=== PATIENT | male | born 1950 | race Caucasian/White ===

== ENCOUNTER 2016-11-14 18:26 | Inpatient (IN) | payer MEDICARE, MEDICAID ==
[~2016-11-14] VITALS: Ht 180.3 cm; Wt 220.0 kg
[2016-11-14] MEDS ORDERED: ALBUTEROL/IPRATROPIUM 2.5MG/0.5MG, 3 ML NPPB ONE (19:00)
[2016-11-14] MEDS ORDERED: PLEASE ENTER ALLERGIES MC SCH ×2 (19:00)
[2016-11-14] MEDS ORDERED: SODIUM CHLORIDE FLUSH 10ML SYR IVF ONE (19:00)
[2016-11-14] MEDS ORDERED: PLEASE ENTER HEIGHT AND WEIGHT MC SCH (19:00)
[2016-11-14] MEDS ORDERED: ALBUTEROL/IPRATROPIUM 2.5MG/0.5MG, 3 ML ONE (19:02)
[2016-11-14 19:32] VITALS: BP 119/71
[2016-11-14 19:34] LABS: ASPARTATE AMINO TRANSFERASE 41 U/L (15-37); BLOOD UREA NITROGEN 39 mg/dL (7-18)
[2016-11-14 19:39] LABS: IS PT STATUS REG ER OR PRE ER? YES
[2016-11-14] MEDS ORDERED: AMLO10TA2 PO (20:57)
[2016-11-14] MEDS ORDERED: FLUT9.9S INH (20:57)
[2016-11-14] MEDS ORDERED: PRAV40TA2 PO (20:57)
[2016-11-14] MEDS ORDERED: OXYC30TA PO (20:57)
[2016-11-14] MEDS ORDERED: INSU100V13 SQ (20:57)
[2016-11-14] MEDS ORDERED: SODI104S3 NS (20:57)
[2016-11-14] MEDS ORDERED: POLY17PO5 PO (20:57)
[2016-11-14] MEDS ORDERED: PANT40TA5 PO (20:57)
[2016-11-14] MEDS ORDERED: ALBU8.5H3 IH (20:57)
[2016-11-14] MEDS ORDERED: FURO20TA3 PO (20:57)
[2016-11-14] MEDS ORDERED: VALS1TAB30 PO (20:57)
[2016-11-14] MEDS ORDERED: ONDA8TAB9 PO (20:57)
[2016-11-14] MEDS ORDERED: INSU200I SQ (20:57)
[2016-11-14] MEDS ORDERED: GABA600T2 PO (20:57)
[2016-11-14] MEDS ORDERED: SOD28CRE SC (20:57)
[2016-11-14] MEDS ORDERED: SITA100T PO (20:57)
[2016-11-14] MEDS ORDERED: METF10002 PO (21:40)
[2016-11-14] MEDS ORDERED: LEVO50TA5 PO (21:40)
[2016-11-14] MEDS ORDERED: MUPI15CR TP (21:40)
[2016-11-14] MEDS ORDERED: INSU100C SQ-INSULIN (21:40)
[2016-11-14] MEDS: INSULIN ASPART 100 UNITS/ML, PEN SQ-INSULIN SCH (22:00)
[2016-11-14] MEDS ORDERED: INSULIN DETEMIR 100 UNITS/ML, PEN SQ-INSULIN SCH (22:00)
[2016-11-14] MEDS: NICOTINE 14MG/24 HR PATCH.TD24 TD SCH (22:00)
[2016-11-14] MEDS ORDERED: SODIUM CHLORIDE 0.9% 1,000 ML IV SCH (22:30)
[2016-11-14 23:56] LABS: IS PT STATUS REG ER OR PRE ER? NO
[2016-11-15] MEDS: NICOTINE 14MG/24 HR PATCH.TD24 TD SCH (00:38)
[2016-11-15] MEDS: INSULIN ASPART 100 UNITS/ML, PEN SQ-INSULIN SCH (00:40)
[2016-11-15] MEDS ORDERED: LEVOTHYROXINE 50 MCG TABLET PO SCH (06:00)
[2016-11-15] MEDS ORDERED: AMLODIPINE 5 MG TABLET PO SCH (09:00)
[2016-11-15] MEDS ORDERED: PRAVASTATIN 40 MG TABLET PO SCH (21:00)
== END 2016-11-15 01:50 | disposition left against medical advice (07) | DRG 682 ==
LOC: ED 20:30 → EDIP 20:42 → ED 21:00 → 4WST 22:08
PROVIDERS: ADMIT Internal Medicine; ATTEND Internal Medicine
DX: N17.0 Acute kidney failure with tubular necrosis (principal); J96.21 Acute and chronic respiratory failure with hypoxia; J44.1 Chronic obstructive pulmonary disease with (acute) exacerbation; Z68.44 Body mass index [BMI] 60.0-69.9, adult; E03.9 Hypothyroidism, unspecified; E11.42 Type 2 diabetes mellitus with diabetic polyneuropathy; E11.621 Type 2 diabetes mellitus with foot ulcer; E66.01 Morbid (severe) obesity due to excess calories; E86.0 Dehydration; F17.200 Nicotine dependence, unspecified, uncomplicated; F32.9 Major depressive disorder, single episode, unspecified; G47.33 Obstructive sleep apnea (adult) (pediatric); I10 Essential (primary) hypertension; I27.81 Cor pulmonale (chronic); L97.519 Non-pressure chronic ulcer of other part of right foot with unspecified severity; L97.529 Non-pressure chronic ulcer of other part of left foot with unspecified severity; Z91.19 Patient's noncompliance with other medical treatment and regimen; Z99.81 Dependence on supplemental oxygen; S91.302A Unspecified open wound, left foot, initial encounter; Z88.8 Allergy status to other drugs, medicaments and biological substances; Z79.899 Other long term (current) drug therapy; X58.XXXA Exposure to other specified factors, initial encounter; Y93.9 Activity, unspecified; Y92.89 Other specified places as the place of occurrence of the external cause; Y99.8 Other external cause status
CPT/HCPCS: 36415; 71010; 78582; 80053; 82550; 82962; 83880; 84484; 85025; 85379; 85610; 85730; 93005; 93970; 94640; 99285; J1815; J7620; A9540; A9558; C9898; J7030; J7512

== ENCOUNTER 2016-11-27 13:18 | Emergency (ER) | payer MEDICARE, MEDICAID ==
[~2016-11-27] VITALS: Ht 182.9 cm; Wt 162.6 kg
[~2016-11-27 13:18] MED LIST: ALBU8.5H3 IH; AMLO10TA2 PO; FLUT9.9S INH; FURO20TA3 PO; GABA600T2 PO; INSU100C SQ-INSULIN; INSU100V13 SQ; INSU200I SQ; LEVO50TA5 PO; METF10002 PO; MUPI15CR TP; ONDA8TAB9 PO; OXYC30TA PO; PANT40TA5 PO; POLY17PO5 PO; PRAV40TA2 PO; SITA100T PO; SOD28CRE SC; SODI104S3 NS; VALS1TAB30 PO
[2016-11-27 13:21] VITALS: BP 129/75
== END 2016-11-27 14:17 | disposition home or self-care (01) ==
LOC: ED 14:04
DX: Z76.0 Encounter for issue of repeat prescription (principal); J44.9 Chronic obstructive pulmonary disease, unspecified; E11.9 Type 2 diabetes mellitus without complications; I10 Essential (primary) hypertension; F17.210 Nicotine dependence, cigarettes, uncomplicated
CPT/HCPCS: 99283

== ENCOUNTER 2017-03-07 15:46 | Emergency (ER) | payer MEDICARE, MEDICAID ==
[~2017-03-07] VITALS: Ht 182.9 cm; Wt 170.0 kg
[~2017-03-07 15:46] MED LIST changes: -ALBU8.5H3 IH; +ALBU8.5H8 IH
[2017-03-07 15:55] VITALS: BP 162/77
[2017-03-07 16:57] LABS: HEMATOCRIT 42.5 % (39.2-51.8); HEMOGLOBIN 14.1 g/dL (13.7-18.0); WHITE BLOOD COUNT 14.3 x10^3/uL (3.4-10)
== END 2017-03-07 18:04 | disposition home or self-care (01) ==
LOC: ED 17:58
DX: R21 Rash and other nonspecific skin eruption (principal); J44.9 Chronic obstructive pulmonary disease, unspecified; M19.90 Unspecified osteoarthritis, unspecified site; I10 Essential (primary) hypertension; E66.01 Morbid (severe) obesity due to excess calories; E11.40 Type 2 diabetes mellitus with diabetic neuropathy, unspecified
CPT/HCPCS: 36415; 85025; 99283

== ENCOUNTER 2017-05-02 16:16 | Emergency (ER) | payer MEDICARE, MEDICAID ==
[~2017-05-02] VITALS: Ht 182.9 cm; Wt 170.0 kg
[2017-05-02] MEDS ORDERED: predniSONE 50MG TABLET PO STA (17:03)
[2017-05-02 17:16] LABS: BASOPHILS % (AUTO) 0 % (0-1); EOSINOPHILS % (AUTO) 3 % (1-7); LYMPHOCYTES % (AUTO) 16 % (22-44); MD NO; MEAN CORPUSCULAR HEMOGLOBIN 29.6 pg (27.5-34.5); MEAN CORPUSCULAR HGB CONC 32.7 g/dL (33.2-36.2); MEAN CORPUSCULAR VOLUME 90.4 fL (81-97); MEAN PLATELET VOLUME 8.4 fL (7.4-10.4); MONOCYTES # (AUTO) 0.51 x10^3/uL (0.2-0.8); MONOCYTES % (AUTO) 4 % (2-9); NEUTROPHILS # (AUTO) 10.45 x10^3/uL (1.8-6.8); NEUTROPHILS % (AUTO) 77 % (42-75); PLATELET COUNT 272 x10^3/uL (130-400); RED CELL DISTRIBUTION WIDTH 15.3 % (9.4-14.8)
[2017-05-02] MEDS ORDERED: ALBUTEROL/IPRATROPIUM 2.5MG/0.5MG, 3 ML ONE (17:19)
[2017-05-02 17:27] LABS: ALANINE AMINOTRANSFERASE 27 U/L (12-78); ALBUMIN 3.3 g/dL (3.4-5.0); ANION GAP 5 mmol/L (5-15); CALCIUM 9.3 mg/dL (8.5-10.1); CHLORIDE 105 mmol/L (98-107)
[2017-05-02] MEDS ORDERED: ALBUTEROL/IPRATROPIUM 2.5MG/0.5MG, 3 ML NPPB ONE (17:30)
[2017-05-02 17:32] LABS: ALKALINE PHOSPHATASE 57 U/L (45-117); BILIRUBIN,TOTAL 0.3 mg/dL (0.2-1.0); CREATININE 1.26 mg/dL (0.7-1.3); TOTAL PROTEIN 8.3 g/dL (6.4-8.2); TROPONIN I < 0.015 ng/mL (0.000-0.045)
[2017-05-02] MEDS ORDERED: ALBUTEROL SULFATE 2.5 MG/3 ML NPPB ONE (18:00)
[2017-05-02] MEDS ORDERED: ALBUTEROL SULFATE 2.5 MG/3 ML ONE (18:03)
[2017-05-02 19:09] VITALS: BP 155/59
== END 2017-05-02 19:11 | disposition home or self-care (01) ==
LOC: ED 18:24
DX: J44.1 Chronic obstructive pulmonary disease with (acute) exacerbation (principal); E66.01 Morbid (severe) obesity due to excess calories; E11.40 Type 2 diabetes mellitus with diabetic neuropathy, unspecified; I10 Essential (primary) hypertension
CPT/HCPCS: 36415; 71045; 80053; 83880; 84484; 85025; 93005; 94640; 99285; J7512; J7613; J7620

== ENCOUNTER 2017-06-11 17:19 | Inpatient (IN) | payer MEDICARE, MEDICAID ==
[~2017-06-11] VITALS: Ht 182.9 cm; Wt 174.0 kg
[2017-06-11] MEDS ORDERED: ACETAMINOPHEN 325 MG TABLET PO ONE (18:30)
[2017-06-11 18:59] LABS: BASOPHILS % (AUTO) 0 % (0-1); EOSINOPHILS # (AUTO) 0.03 x10^3/uL (0-0.4); EOSINOPHILS % (AUTO) 0 % (1-7); LYMPHOCYTES # (AUTO) 1.29 x10^3/uL (1-3.4); LYMPHOCYTES % (AUTO) 8 % (22-44); MD NO; MEAN CORPUSCULAR HEMOGLOBIN 29.8 pg (27.5-34.5); MEAN CORPUSCULAR HGB CONC 32.7 g/dL (33.2-36.2); MEAN CORPUSCULAR VOLUME 91.3 fL (81-97); MEAN PLATELET VOLUME 8.6 fL (7.4-10.4); MONOCYTES % (AUTO) 4 % (2-9); NEUTROPHILS # (AUTO) 13.49 x10^3/uL (1.8-6.8); NEUTROPHILS % (AUTO) 88 % (42-75); PLATELET COUNT 285 x10^3/uL (130-400); RED BLOOD COUNT 4.76 x10^6/uL (4.38-5.82); RED CELL DISTRIBUTION WIDTH 15.7 % (9.4-14.8)
[2017-06-11] MEDS ORDERED: ACETAMINOPHEN 325 MG TABLET ONE (19:04)
[2017-06-11 19:08] LABS: ALANINE AMINOTRANSFERASE 17 U/L (12-78); ALBUMIN 3.2 g/dL (3.4-5.0); ANION GAP 8 mmol/L (5-15); CALCIUM 8.4 mg/dL (8.5-10.1); CHLORIDE 103 mmol/L (98-107); CREATININE 1.34 mg/dL (0.7-1.3)
[2017-06-11 19:11] LABS: ALKALINE PHOSPHATASE 62 U/L (45-117); BILIRUBIN,TOTAL 0.5 mg/dL (0.2-1.0); TOTAL PROTEIN 8.3 g/dL (6.4-8.2)
[2017-06-11] MEDS ORDERED: ONDA4TAB10 PO (19:38)
[2017-06-11] MEDS ORDERED: METF1000 PO (19:38)
[2017-06-11] MEDS ORDERED: HYDR28.423 TD (19:38)
[2017-06-11] MEDS ORDERED: INSU100V13 SQ (19:38)
[2017-06-11] MEDS ORDERED: FURO20TA3 PO (19:38)
[2017-06-11] MEDS ORDERED: DOCU100C33 PO (19:38)
[2017-06-11] MEDS ORDERED: OXYC30TA74 PO (19:38)
[2017-06-11] MEDS ORDERED: AMLO10TA2 PO (19:38)
[2017-06-11] MEDS ORDERED: LEVO50TA5 PO (19:38)
[2017-06-11] MEDS ORDERED: MUPI15CR TD (19:38)
[2017-06-11] MEDS ORDERED: POLY17PO5 PO (19:38)
[2017-06-11] MEDS ORDERED: IPRA3AMP INH (19:38)
[2017-06-11] MEDS ORDERED: FLUT9.9S NAS (19:38)
[2017-06-11] MEDS ORDERED: VALS1TAB30 PO (19:38)
[2017-06-11] MEDS ORDERED: PRAV40TA2 PO (19:38)
[2017-06-11] MEDS ORDERED: SITA100T PO (19:38)
[2017-06-11] MEDS ORDERED: GABA600T2 PO (19:38)
[2017-06-11] MEDS ORDERED: PANT40TA5 PO (19:38)
[2017-06-11] MEDS ORDERED: AMMO57LO TD (19:38)
[2017-06-11] MEDS: SODIUM CHLORIDE 0.9% 1,000 ML IV SCH (19:51)
[2017-06-11] MEDS ORDERED: ONDANSETRON 2MG/ML, 2ML IVPush PRN (20:00)
[2017-06-11] MEDS ORDERED: ACETAMINOPHEN 325 MG TABLET PO PRN (20:00)
[2017-06-11] MEDS ORDERED: MUPIROCIN CALCIUM TD ONE (20:00)
[2017-06-11] MEDS: ENOXAPARIN 40 MG/0.4 ML SQ SCH (20:00)
[2017-06-11] MEDS ORDERED: ALBUTEROL/IPRATROPIUM 2.5MG/0.5MG, 3 ML HHN PRN (20:00)
[2017-06-11] MEDS ORDERED: hydrALAzine 20 MG/ML, 1ML IVPush PRN (20:00)
[2017-06-11 20:24] LABS: MICROSCOPIC AUTO
[2017-06-11 20:25] LABS: CULTURE INDICATED? NO
[2017-06-11] MEDS ORDERED: ALBUTEROL/IPRATROPIUM 2.5MG/0.5MG, 3 ML NPPB PRN (20:30)
[2017-06-11] MEDS ORDERED: INSULIN DETEMIR 100 UNITS/ML, PEN SQ-INSULIN SCH (21:00)
[2017-06-11] MEDS: DOCUSATE 100 MG CAPSULE PO SCH (21:00)
[2017-06-11] MEDS: PRAVASTATIN 40 MG TABLET PO SCH (21:00)
[2017-06-11] MEDS ORDERED: INSULIN LISPRO 100 UNITS/ML, PEN SQ-INSULIN SCH (21:00)
[2017-06-11] MEDS: metFORMIN 500 MG TABLET PO SCH (21:00)
[2017-06-11] MEDS: ALBUTEROL SULFATE 2.5 MG/3 ML NPPB SCH ×2 (21:30→23:00)
[2017-06-11 21:52] VITALS: BP 132/61
[2017-06-11] MEDS: GABAPENTIN 400 MG CAPSULE PO SCH (23:55)
[2017-06-12 02:38] VITALS: BP 112/66
[2017-06-12] MEDS: ALBUTEROL SULFATE 2.5 MG/3 ML NPPB SCH ×5 (06:00→20:15)
[2017-06-12 06:50] VITALS: BP 138/74
[2017-06-12] MEDS: FLUTICASONE NASAL SPRAY 16GM NAS SCH (09:00)
[2017-06-12] MEDS: FUROSEMIDE 20 MG TABLET PO SCH ×2 (09:00→09:49)
[2017-06-12] MEDS: DOCUSATE 100 MG CAPSULE PO SCH ×2 (09:00→21:00)
[2017-06-12] MEDS: PANTOPROZOLE 40MG TABLET PO SCH ×2 (09:00→09:48)
[2017-06-12] MEDS: POLYETHYLENE GLYCOL 17 GM PACKET PO SCH (09:00)
[2017-06-12] MEDS: LEVOTHYROXINE 50 MCG TABLET PO SCH (09:00)
[2017-06-12] MEDS: INSULIN LISPRO 100 UNITS/ML, PEN SQ-INSULIN SCH ×3 (09:45→22:27)
[2017-06-12] MEDS: INSULIN GLARGINE 100 UNITS/ML, PEN SQ-INSULIN SCH ×2 (09:46→22:28)
[2017-06-12] MEDS: metFORMIN 500 MG TABLET PO SCH ×2 (09:48→23:04)
[2017-06-12] MEDS: SITAGLIPTIN 50MG TABLET PO SCH (09:48)
[2017-06-12] MEDS: GABAPENTIN 400 MG CAPSULE PO SCH ×3 (09:48→23:04)
[2017-06-12] MEDS: SODIUM CHLORIDE 0.9% 1,000 ML IV SCH (10:06)
[2017-06-12] MEDS: AMLODIPINE 5 MG TABLET PO SCH (10:08)
[2017-06-12] MEDS ORDERED: INSULIN LISPRO 100 UNITS/ML, PEN SQ-INSULIN SCH (11:00)
[2017-06-12 13:05] VITALS: BP 153/81
[2017-06-12] MEDS ORDERED: KETOROLAC 30 MG/1 ML IM ONE (17:00)
[2017-06-12] MEDS ORDERED: KETOROLAC 30 MG/1 ML ONE (17:06)
[2017-06-12 19:55] VITALS: BP 159/73
[2017-06-12] MEDS: ENOXAPARIN 40 MG/0.4 ML SQ SCH (23:03)
[2017-06-12] MEDS: PRAVASTATIN 40 MG TABLET PO SCH (23:04)
[2017-06-13 03:32] VITALS: BP 152/79
[2017-06-13] MEDS: INSULIN LISPRO 100 UNITS/ML, PEN SQ-INSULIN SCH ×2 (07:00→11:00)
[2017-06-13 07:01] VITALS: BP 172/80
[2017-06-13] MEDS: ALBUTEROL SULFATE 2.5 MG/3 ML NPPB SCH ×4 (07:07→13:21)
[2017-06-13] MEDS ORDERED: LEVOTHYROXINE 25 MCG TABLET ONE (07:58)
[2017-06-13 08:21] VITALS: BP 159/84
[2017-06-13] MEDS: FLUTICASONE NASAL SPRAY 16GM NAS SCH (09:00)
[2017-06-13] MEDS: POLYETHYLENE GLYCOL 17 GM PACKET PO SCH (09:00)
[2017-06-13] MEDS: DOCUSATE 100 MG CAPSULE PO SCH (09:00)
[2017-06-13] MEDS: GABAPENTIN 400 MG CAPSULE PO SCH (09:00)
[2017-06-13] MEDS: metFORMIN 500 MG TABLET PO SCH ×2 (09:00→12:25)
[2017-06-13] MEDS: PANTOPROZOLE 40MG TABLET PO SCH (09:00)
[2017-06-13] MEDS: SITAGLIPTIN 50MG TABLET PO SCH ×2 (09:00→12:25)
[2017-06-13] MEDS: FUROSEMIDE 20 MG TABLET PO SCH (09:00)
[2017-06-13] MEDS: AMLODIPINE 5 MG TABLET PO SCH (09:09)
[2017-06-13] MEDS: LEVOTHYROXINE 50 MCG TABLET PO SCH (09:10)
[2017-06-13] MEDS: INSULIN GLARGINE 100 UNITS/ML, PEN SQ-INSULIN SCH (09:13)
[2017-06-13 12:22] LABS: HEMOGLOBIN A1C 8.6 % (4.2-6.3)
[2017-06-13 12:30] VITALS: BP 188/90
[2017-06-13] MEDS ORDERED: INSULIN LISPRO 100 UNITS/ML, PEN SQ-INSULIN ONE (12:30)
[2017-06-13 12:49] VITALS: BP 150/55
[2017-06-13 15:00] VITALS: BP 152/57
[2017-06-13] MEDS ORDERED: HYDROcodone/APAP 10/325 MG TABLET PO SCH (15:00)
== END 2017-06-13 15:26 | disposition home or self-care (01) | DRG 864 ==
LOC: ED 19:29 → SUATTDRO 19:38 → EDIP 19:51 → 4NOR 20:42
PROVIDERS: ADMIT Hospitalist; ATTEND Hospitalist
DX: R50.9 Fever, unspecified (principal); E44.0 Moderate protein-calorie malnutrition; J96.10 Chronic respiratory failure, unspecified whether with hypoxia or hypercapnia; I27.81 Cor pulmonale (chronic); E11.42 Type 2 diabetes mellitus with diabetic polyneuropathy; E11.65 Type 2 diabetes mellitus with hyperglycemia; Z68.43 Body mass index [BMI] 50.0-59.9, adult; E66.2 Morbid (severe) obesity with alveolar hypoventilation; L03.90 Cellulitis, unspecified; E03.9 Hypothyroidism, unspecified; F17.200 Nicotine dependence, unspecified, uncomplicated; F32.9 Major depressive disorder, single episode, unspecified; G89.29 Other chronic pain; M54.9 Dorsalgia, unspecified; I11.9 Hypertensive heart disease without heart failure; J44.9 Chronic obstructive pulmonary disease, unspecified; L89.91 Pressure ulcer of unspecified site, stage 1; Z79.4 Long term (current) use of insulin; Z86.73 Personal history of transient ischemic attack (TIA), and cerebral infarction without residual deficits; Z91.14 Patient's other noncompliance with medication regimen; Z93.3 Colostomy status; Z99.81 Dependence on supplemental oxygen; Z88.8 Allergy status to other drugs, medicaments and biological substances
CPT/HCPCS: 36415; 71045; 80053; 81001; 82962; 83036; 83605; 85025; 87040; 93005; 94640; 94660; 99285; J1650; J7613; J7620; J1815

== ENCOUNTER 2017-09-28 03:59 | Inpatient (IN) | payer MEDICARE, MEDICAID ==
[~2017-09-28] VITALS: Ht 180.3 cm; Wt 156.4 kg
[~2017-09-28 03:59] MED LIST changes: +AMMO57LO TD; +DOCU100C33 PO; +FLUT9.9S NAS; +HYDR28.423 TD; +IPRA3AMP INH; +METF1000 PO; +MUPI15CR TD; +ONDA4TAB10 PO; +OXYC30TA74 PO
[2017-09-28] MEDS ORDERED: FLUT1BLS INH (04:23)
[2017-09-28] MEDS ORDERED: ALBUTEROL/IPRATROPIUM 2.5MG/0.5MG, 3 ML NPPB ONE ×2 (04:30→12:00)
[2017-09-28] MEDS ORDERED: ALBUTEROL/IPRATROPIUM 2.5MG/0.5MG, 3 ML ONE ×2 (04:31→11:54)
[2017-09-28 04:40] LABS: MEAN CORPUSCULAR HEMOGLOBIN 29.7 pg (27.5-34.5); MEAN CORPUSCULAR HGB CONC 32.8 g/dL (33.2-36.2); MEAN CORPUSCULAR VOLUME 90.5 fL (81-97); MEAN PLATELET VOLUME 8.2 fL (7.4-10.4); PLATELET COUNT 266 x10^3/uL (130-400); RED CELL DISTRIBUTION WIDTH 13.9 % (9.4-14.8)
[2017-09-28 04:43] LABS: INTERNATIONAL NORMALIZED RATIO 0.98 (0.93-1.1); PROTHROMBIN TIME 10.1 Seconds (9.6-11.5)
[2017-09-28 04:46] LABS: ALANINE AMINOTRANSFERASE 28 U/L (12-78); ANION GAP 9 mmol/L (5-15); CALCIUM 9.4 mg/dL (8.5-10.1); CHLORIDE 101 mmol/L (98-107); CREATININE 1.64 mg/dL (0.7-1.3)
[2017-09-28 04:51] LABS: ALKALINE PHOSPHATASE 64 U/L (45-117); BILIRUBIN,TOTAL 0.4 mg/dL (0.2-1.0); TOTAL PROTEIN 8.2 g/dL (6.4-8.2); TROPONIN I < 0.015 ng/mL (0.000-0.045)
[2017-09-28] MEDS ORDERED: LORazepam 2 MG/ML, 1ML ONE (04:57)
[2017-09-28] MEDS ORDERED: SODIUM CHLORIDE FLUSH 10ML SYR IVF ONE (05:00)
[2017-09-28] MEDS ORDERED: LORazepam 2 MG/ML, 1ML IVP ONE (05:00)
[2017-09-28] MEDS ORDERED: SODIUM CHLORIDE 0.9% 1,000ML IVBOLUS ONE (05:00)
[2017-09-28 05:14] LABS: BASOPHILS % (AUTO) 0 % (0-1); EOSINOPHILS # (AUTO) 0.05 x10^3/uL (0-0.4); EOSINOPHILS % (AUTO) 0 % (1-7); LYMPHOCYTES % (AUTO) 2 % (22-44); MD SCAN; MONOCYTES # (AUTO) 0.53 x10^3/uL (0.2-0.8); MONOCYTES % (AUTO) 2 % (2-9); NEUTROPHILS # (AUTO) 32.11 x10^3/uL (1.8-6.8); NEUTROPHILS % (AUTO) 96 % (42-75)
[2017-09-28 06:23] LABS: ACETONE, SERUM Negative (Negative)
[2017-09-28] MEDS ORDERED: ACETAMINOPHEN 500 MG TABLET ONE (06:48)
[2017-09-28] MEDS ORDERED: ACETAMINOPHEN 500 MG TABLET PO ONE (07:00)
[2017-09-28] MEDS ORDERED: CEFTRIAXONE PMX 1GM/50ML 50 ML IVPB ONE (08:00)
[2017-09-28] MEDS ORDERED: DIPHENHYDRAMINE 50 MG/ML, 1ML IVPush ONE (08:00)
[2017-09-28] MEDS ORDERED: CEFTRIAXONE PMX 1GM/50ML 50 ML ONE (08:15)
[2017-09-28] MEDS ORDERED: DEXTROSE 50%, 50ML SYRINGE IVPush PRN (12:30)
[2017-09-28] MEDS ORDERED: ACETAMINOPHEN 325 MG TABLET PO PRN (12:30)
[2017-09-28] MEDS ORDERED: LABETALOL 5MG/ML, 20ML IVPush PRN (12:30)
[2017-09-28] MEDS ORDERED: PHARMACY MAY ADJ FOR RENAL FX MC PRN (12:30)
[2017-09-28] MEDS ORDERED: ONDANSETRON 2MG/ML, 2ML IVPush PRN (12:30)
[2017-09-28] MEDS ORDERED: GLUCAGON 1 MG IM PRN (12:30)
[2017-09-28] MEDS: LEVOTHYROXINE 50 MCG TABLET PO SCH (12:30)
[2017-09-28] MEDS ORDERED: DEXTROSE 4 GM TAB.CHEW PO PRN (12:30)
[2017-09-28] MEDS: PANTOPROZOLE 40MG TABLET PO SCH (12:30)
[2017-09-28 12:42] LABS: MICROSCOPIC INDICATED
[2017-09-28 12:56] LABS: CULTURE INDICATED? YES
[2017-09-28] MEDS ORDERED: MAGNESIUM SULFATE 1 GM in SODIUM CHLORIDE 0.9% 50 ML IV ONE (13:00)
[2017-09-28] MEDS ORDERED: MAGNESIUM SULFATE 1 GM in SODIUM CHLORIDE 0.9% 25 ML IV ONE (13:00)
[2017-09-28] MEDS: ALBUTEROL/IPRATROPIUM 2.5MG/0.5MG, 3 ML NPPB SCH ×2 (13:00→21:00)
[2017-09-28] MEDS ORDERED: ALBUTEROL SULFATE 2.5 MG/3 ML NPPB PRN (13:00)
[2017-09-28 13:29] LABS: HEMOGLOBIN A1C 9.3 % (4.2-6.3)
[2017-09-28 13:41] LABS: THYROID STIMULATING HORMONE 1.56 mIU/L (0.358-3.740)
[2017-09-28] MEDS ORDERED: CEFTRIAXONE PMX 1GM/50ML 50 ML IV SCH (14:00)
[2017-09-28 14:02] VITALS: BP 174/68
[2017-09-28] MEDS: NICOTINE 14MG/24 HR PATCH.TD24 TD SCH (15:27)
[2017-09-28] MEDS: HEPARIN 5,000 UNITS/ML, 1ML SQ SCH (15:28)
[2017-09-28] MEDS: DOXYCYCLINE 100 MG in DEXTROSE 5% 250 ML IV SCH ×2 (15:29→17:47)
[2017-09-28] MEDS: SODIUM CHLORIDE 0.9% 1,000 ML IV SCH (15:29)
[2017-09-28] MEDS: INSULIN LISPRO 100 UNITS/ML, PEN SQ-INSULIN SCH ×2 (16:00→21:58)
[2017-09-28] MEDS ORDERED: PHARMACOKINETIC CONSULTATION MC ONE (18:00)
[2017-09-28] MEDS ORDERED: PHARMACOKINETIC MONITORING MC PRN (18:00)
[2017-09-28] MEDS ORDERED: VANCOMYCIN PER PHARMACY MC PRN (18:00)
[2017-09-28] MEDS: PIPERACILLIN/TAZO/PMX 4.5GM 100 ML IV SCH (18:57)
[2017-09-28] MEDS ORDERED: VANCOMYCIN 3,000 MG in SODIUM CHLORIDE 0.9% 500 ML IV ONE (19:00)
[2017-09-28] MEDS: DOCUSATE 100 MG CAPSULE PO SCH (21:00)
[2017-09-28] MEDS: INSULIN GLARGINE 100 UNITS/ML, PEN SQ-INSULIN SCH (21:00)
[2017-09-28] MEDS: SODIUM CHLORIDE FLUSH 10ML SYR IVF SCH (21:57)
[2017-09-29] MEDS: PIPERACILLIN/TAZO/PMX 4.5GM 100 ML IV SCH ×3 (00:42→12:38)
[2017-09-29] MEDS: HEPARIN 5,000 UNITS/ML, 1ML SQ SCH ×3 (00:43→16:26)
[2017-09-29 04:00] VITALS: BP 128/57
[2017-09-29] MEDS: ALBUTEROL/IPRATROPIUM 2.5MG/0.5MG, 3 ML NPPB SCH ×5 (04:41→22:30)
[2017-09-29 04:44] LABS: ANION GAP 7 mmol/L (5-15); CALCIUM 8.6 mg/dL (8.5-10.1); CHLORIDE 102 mmol/L (98-107)
[2017-09-29 04:48] LABS: MEAN CORPUSCULAR HEMOGLOBIN 29.8 pg (27.5-34.5); MEAN CORPUSCULAR HGB CONC 32.8 g/dL (33.2-36.2); MEAN CORPUSCULAR VOLUME 90.9 fL (81-97); MEAN PLATELET VOLUME 8.5 fL (7.4-10.4); PLATELET COUNT 201 x10^3/uL (130-400); RED BLOOD COUNT 4.66 x10^6/uL (4.38-5.82); RED CELL DISTRIBUTION WIDTH 14.3 % (9.4-14.8)
[2017-09-29 05:57] LABS: BASOPHILS % (AUTO) 0 % (0-1); EOSINOPHILS % (AUTO) 0 % (1-7); LYMPHOCYTES # (AUTO) 0.81 x10^3/uL (1-3.4); LYMPHOCYTES % (AUTO) 4 % (22-44); MD SCAN; MONOCYTES # (AUTO) 0.35 x10^3/uL (0.2-0.8); MONOCYTES % (AUTO) 2 % (2-9); NEUTROPHILS # (AUTO) 21.84 x10^3/uL (1.8-6.8); NEUTROPHILS % (AUTO) 95 % (42-75)
[2017-09-29] MEDS: INSULIN LISPRO 100 UNITS/ML, PEN SQ-INSULIN SCH ×4 (06:45→21:38)
[2017-09-29] MEDS: PANTOPROZOLE 40MG TABLET PO SCH (08:21)
[2017-09-29] MEDS: DOCUSATE 100 MG CAPSULE PO SCH ×2 (08:21→20:39)
[2017-09-29] MEDS: AMLODIPINE 5 MG TABLET PO SCH (08:22)
[2017-09-29] MEDS: LEVOTHYROXINE 50 MCG TABLET PO SCH (08:22)
[2017-09-29] MEDS: SODIUM CHLORIDE 0.9% 1,000 ML IV SCH (08:29)
[2017-09-29] MEDS: SODIUM CHLORIDE FLUSH 10ML SYR IVF SCH ×2 (08:29→21:00)
[2017-09-29] MEDS: INSULIN GLARGINE 100 UNITS/ML, PEN SQ-INSULIN SCH ×2 (08:30→21:37)
[2017-09-29] MEDS: FLUTICASONE NASAL SPRAY 16GM NAS SCH (10:02)
[2017-09-29] MEDS: NICOTINE 14MG/24 HR PATCH.TD24 TD SCH (12:38)
[2017-09-29] MEDS ORDERED: VANCOMYCIN 2,500 MG in SODIUM CHLORIDE 0.9% 500 ML IV SCH (13:00)
[2017-09-29 14:35] LABS: CREATININE,URINE RANDOM 89.8 mg/dL
[2017-09-29] MEDS: PIPERACILLIN/TAZO/PMX 3.375GM 50 ML IV SCH (20:12)
[2017-09-30] MEDS: HEPARIN 5,000 UNITS/ML, 1ML SQ SCH ×4 (00:52→23:45)
[2017-09-30] MEDS: ALBUTEROL/IPRATROPIUM 2.5MG/0.5MG, 3 ML NPPB SCH ×5 (02:37→19:00)
[2017-09-30] MEDS: PIPERACILLIN/TAZO/PMX 3.375GM 50 ML IV SCH ×4 (03:21→20:21)
[2017-09-30 04:00] VITALS: BP 120/48
[2017-09-30 04:58] LABS: BASOPHILS % (AUTO) 0 % (0-1); EOSINOPHILS # (AUTO) 0.02 x10^3/uL (0-0.4); EOSINOPHILS % (AUTO) 0 % (1-7); LYMPHOCYTES % (AUTO) 8 % (22-44); MD NO; MEAN CORPUSCULAR HEMOGLOBIN 29.9 pg (27.5-34.5); MEAN CORPUSCULAR HGB CONC 33.2 g/dL (33.2-36.2); MEAN CORPUSCULAR VOLUME 90.1 fL (81-97); MEAN PLATELET VOLUME 8.7 fL (7.4-10.4); MONOCYTES # (AUTO) 0.52 x10^3/uL (0.2-0.8); MONOCYTES % (AUTO) 3 % (2-9); NEUTROPHILS # (AUTO) 14.06 x10^3/uL (1.8-6.8); NEUTROPHILS % (AUTO) 88 % (42-75); PLATELET COUNT 185 x10^3/uL (130-400); RED BLOOD COUNT 3.97 x10^6/uL (4.38-5.82); RED CELL DISTRIBUTION WIDTH 14.6 % (9.4-14.8)
[2017-09-30 05:05] LABS: ALANINE AMINOTRANSFERASE 32 U/L (12-78); ALBUMIN 1.9 g/dL (3.4-5.0); ANION GAP 8 mmol/L (5-15); CALCIUM 7.9 mg/dL (8.5-10.1); CHLORIDE 105 mmol/L (98-107); CREATININE 2.92 mg/dL (0.7-1.3)
[2017-09-30 05:08] LABS: ALKALINE PHOSPHATASE 52 U/L (45-117); BILIRUBIN,TOTAL 0.4 mg/dL (0.2-1.0); TOTAL PROTEIN 6.7 g/dL (6.4-8.2)
[2017-09-30] MEDS ORDERED: VANCOMYCIN 2,000 MG in SODIUM CHLORIDE 0.9% 500 ML IV ONE (08:30)
[2017-09-30] MEDS: AMLODIPINE 5 MG TABLET PO SCH (08:41)
[2017-09-30] MEDS: LEVOTHYROXINE 50 MCG TABLET PO SCH (08:41)
[2017-09-30] MEDS: DOCUSATE 100 MG CAPSULE PO SCH ×2 (08:42→20:21)
[2017-09-30] MEDS: FLUTICASONE NASAL SPRAY 16GM NAS SCH (08:43)
[2017-09-30] MEDS: INSULIN GLARGINE 100 UNITS/ML, PEN SQ-INSULIN SCH ×2 (08:44→20:48)
[2017-09-30] MEDS: SODIUM CHLORIDE FLUSH 10ML SYR IVF SCH ×2 (08:52→20:21)
[2017-09-30] MEDS: PANTOPROZOLE 40MG TABLET PO SCH (08:52)
[2017-09-30] MEDS: INSULIN LISPRO 100 UNITS/ML, PEN SQ-INSULIN SCH ×5 (08:53→20:47)
[2017-09-30] MEDS: HYDROcodone/APAP 5/325 TABLET PO PRN (10:48)
[2017-09-30] MEDS: NICOTINE 14MG/24 HR PATCH.TD24 TD SCH (11:27)
[2017-09-30 12:51] VITALS: BP 118/68
[2017-09-30] MEDS ORDERED: OXYcodone IR 5MG TABLET ONE (16:13)
[2017-09-30] MEDS: OXYcodone IR 30 MG TABLET PO PRN ×2 (16:23→23:45)
[2017-09-30 20:04] VITALS: BP 118/68
[2017-10-01 02:17] VITALS: BP 119/68
[2017-10-01] MEDS: PIPERACILLIN/TAZO/PMX 3.375GM 50 ML IV SCH ×4 (02:17→22:31)
[2017-10-01 05:27] LABS: ALBUMIN 2.2 g/dL (3.4-5.0); ANION GAP 9 mmol/L (5-15); CALCIUM 7.8 mg/dL (8.5-10.1); CHLORIDE 103 mmol/L (98-107)
[2017-10-01 05:30] LABS: BASOPHILS # (AUTO) 0.04 x10^3/uL (0-0.1); BASOPHILS % (AUTO) 0 % (0-1); EOSINOPHILS # (AUTO) 0.26 x10^3/uL (0-0.4); EOSINOPHILS % (AUTO) 2 % (1-7); LYMPHOCYTES # (AUTO) 1.88 x10^3/uL (1-3.4); LYMPHOCYTES % (AUTO) 16 % (22-44); MD NO; MEAN CORPUSCULAR HEMOGLOBIN 30.1 pg (27.5-34.5); MEAN CORPUSCULAR HGB CONC 33.5 g/dL (33.2-36.2); MEAN CORPUSCULAR VOLUME 89.8 fL (81-97); MEAN PLATELET VOLUME 9.2 fL (7.4-10.4); MONOCYTES # (AUTO) 0.63 x10^3/uL (0.2-0.8); MONOCYTES % (AUTO) 6 % (2-9); NEUTROPHILS # (AUTO) 8.61 x10^3/uL (1.8-6.8); NEUTROPHILS % (AUTO) 75 % (42-75); PLATELET COUNT 208 x10^3/uL (130-400); RED BLOOD COUNT 4.08 x10^6/uL (4.38-5.82); RED CELL DISTRIBUTION WIDTH 14.3 % (9.4-14.8)
[2017-10-01 05:31] LABS: ALANINE AMINOTRANSFERASE 34 U/L (12-78); ALKALINE PHOSPHATASE 57 U/L (45-117); BILIRUBIN,TOTAL 0.5 mg/dL (0.2-1.0); CREATININE 3.08 mg/dL (0.7-1.3); TOTAL PROTEIN 7.3 g/dL (6.4-8.2)
[2017-10-01] MEDS: OXYcodone IR 30 MG TABLET PO PRN ×3 (06:55→22:39)
[2017-10-01] MEDS: INSULIN LISPRO 100 UNITS/ML, PEN SQ-INSULIN SCH ×4 (07:14→20:57)
[2017-10-01 07:24] VITALS: BP 118/66
[2017-10-01] MEDS: ALBUTEROL/IPRATROPIUM 2.5MG/0.5MG, 3 ML NPPB SCH ×4 (08:17→20:10)
[2017-10-01] MEDS: HEPARIN 5,000 UNITS/ML, 1ML SQ SCH ×2 (09:52→16:04)
[2017-10-01] MEDS: SODIUM CHLORIDE FLUSH 10ML SYR IVF SCH ×2 (09:52→20:39)
[2017-10-01] MEDS: LEVOTHYROXINE 50 MCG TABLET PO SCH (09:52)
[2017-10-01] MEDS: FLUTICASONE NASAL SPRAY 16GM NAS SCH (09:52)
[2017-10-01] MEDS: PANTOPROZOLE 40MG TABLET PO SCH (09:52)
[2017-10-01] MEDS: AMLODIPINE 5 MG TABLET PO SCH (09:53)
[2017-10-01] MEDS: INSULIN GLARGINE 100 UNITS/ML, PEN SQ-INSULIN SCH ×2 (09:54→20:57)
[2017-10-01] MEDS: DOCUSATE 100 MG CAPSULE PO SCH ×2 (09:55→20:39)
[2017-10-01] MEDS: NICOTINE 14MG/24 HR PATCH.TD24 TD SCH (12:24)
[2017-10-01 15:00] VITALS: BP 113/67
[2017-10-01 19:29] VITALS: BP 125/72
[2017-10-02] MEDS: HEPARIN 5,000 UNITS/ML, 1ML SQ SCH ×3 (00:13→17:19)
[2017-10-02 00:48] VITALS: BP 116/70
[2017-10-02] MEDS: PIPERACILLIN/TAZO/PMX 3.375GM 50 ML IV SCH ×4 (04:22→23:14)
[2017-10-02 05:33] LABS: BASOPHILS # (AUTO) 0.03 x10^3/uL (0-0.1); BASOPHILS % (AUTO) 0 % (0-1); EOSINOPHILS % (AUTO) 3 % (1-7); LYMPHOCYTES # (AUTO) 1.73 x10^3/uL (1-3.4); LYMPHOCYTES % (AUTO) 19 % (22-44); MD NO; MEAN CORPUSCULAR HEMOGLOBIN 29.8 pg (27.5-34.5); MEAN CORPUSCULAR HGB CONC 33.5 g/dL (33.2-36.2); MEAN PLATELET VOLUME 8.5 fL (7.4-10.4); MONOCYTES # (AUTO) 0.72 x10^3/uL (0.2-0.8); MONOCYTES % (AUTO) 8 % (2-9); NEUTROPHILS # (AUTO) 6.37 x10^3/uL (1.8-6.8); NEUTROPHILS % (AUTO) 70 % (42-75); PLATELET COUNT 250 x10^3/uL (130-400); RED BLOOD COUNT 4.19 x10^6/uL (4.38-5.82); RED CELL DISTRIBUTION WIDTH 14.5 % (9.4-14.8)
[2017-10-02 05:51] LABS: CHLORIDE 100 mmol/L (98-107)
[2017-10-02 06:03] LABS: ALANINE AMINOTRANSFERASE 33 U/L (12-78); ALBUMIN 2.4 g/dL (3.4-5.0); ALKALINE PHOSPHATASE 63 U/L (45-117); ANION GAP 9 mmol/L (5-15); BILIRUBIN,TOTAL 0.5 mg/dL (0.2-1.0); CALCIUM 8.1 mg/dL (8.5-10.1); CREATININE 3.52 mg/dL (0.7-1.3)
[2017-10-02] MEDS: OXYcodone IR 30 MG TABLET PO PRN ×3 (06:34→20:25)
[2017-10-02] MEDS: INSULIN LISPRO 100 UNITS/ML, PEN SQ-INSULIN SCH ×4 (07:00→20:02)
[2017-10-02] MEDS: ALBUTEROL/IPRATROPIUM 2.5MG/0.5MG, 3 ML NPPB SCH ×4 (07:00→18:45)
[2017-10-02] MEDS: FLUTICASONE NASAL SPRAY 16GM NAS SCH (09:00)
[2017-10-02 10:50] VITALS: BP 129/72
[2017-10-02] MEDS: SODIUM CHLORIDE FLUSH 10ML SYR IVF SCH ×2 (11:04→20:26)
[2017-10-02] MEDS: AMLODIPINE 5 MG TABLET PO SCH (11:05)
[2017-10-02] MEDS: PANTOPROZOLE 40MG TABLET PO SCH (11:05)
[2017-10-02] MEDS: LEVOTHYROXINE 50 MCG TABLET PO SCH (11:05)
[2017-10-02] MEDS: DOCUSATE 100 MG CAPSULE PO SCH ×2 (11:06→20:25)
[2017-10-02] MEDS: INSULIN GLARGINE 100 UNITS/ML, PEN SQ-INSULIN SCH ×2 (11:08→20:26)
[2017-10-02] MEDS: NICOTINE 14MG/24 HR PATCH.TD24 TD SCH (12:30)
[2017-10-02 14:47] VITALS: BP 114/68
[2017-10-02 20:00] VITALS: BP 116/67
[2017-10-03 02:20] VITALS: BP 120/63
[2017-10-03] MEDS: OXYcodone IR 30 MG TABLET PO PRN ×2 (04:56→16:54)
[2017-10-03] MEDS: PIPERACILLIN/TAZO/PMX 3.375GM 50 ML IV SCH ×4 (04:56→23:21)
[2017-10-03 06:38] LABS: BASOPHILS # (AUTO) 0.05 x10^3/uL (0-0.1); BASOPHILS % (AUTO) 0 % (0-1); EOSINOPHILS # (AUTO) 0.22 x10^3/uL (0-0.4); EOSINOPHILS % (AUTO) 2 % (1-7); HCT (SEDRATE) 36.4 % (39.2-51.8); LYMPHOCYTES # (AUTO) 1.45 x10^3/uL (1-3.4); LYMPHOCYTES % (AUTO) 13 % (22-44); MD NO; MEAN CORPUSCULAR HEMOGLOBIN 29.9 pg (27.5-34.5); MEAN CORPUSCULAR HGB CONC 33.1 g/dL (33.2-36.2); MEAN CORPUSCULAR VOLUME 90.2 fL (81-97); MEAN PLATELET VOLUME 8.1 fL (7.4-10.4); MONOCYTES # (AUTO) 0.66 x10^3/uL (0.2-0.8); MONOCYTES % (AUTO) 6 % (2-9); NEUTROPHILS # (AUTO) 8.49 x10^3/uL (1.8-6.8); NEUTROPHILS % (AUTO) 78 % (42-75); PLATELET COUNT 289 x10^3/uL (130-400); RED BLOOD COUNT 4.04 x10^6/uL (4.38-5.82); RED CELL DISTRIBUTION WIDTH 14.9 % (9.4-14.8)
[2017-10-03 06:50] LABS: ANION GAP 10 mmol/L (5-15); CALCIUM 8.2 mg/dL (8.5-10.1); CHLORIDE 103 mmol/L (98-107); CREATININE 3.65 mg/dL (0.7-1.3)
[2017-10-03] MEDS: INSULIN LISPRO 100 UNITS/ML, PEN SQ-INSULIN SCH ×4 (07:00→20:27)
[2017-10-03] MEDS: ALBUTEROL/IPRATROPIUM 2.5MG/0.5MG, 3 ML NPPB SCH ×4 (07:10→20:00)
[2017-10-03 07:12] LABS: SEDIMENTATION RATE 104 mm/hr (0-10)
[2017-10-03] MEDS ORDERED: LEVOTHYROXINE 25 MCG TABLET ONE (08:24)
[2017-10-03] MEDS: LEVOTHYROXINE 50 MCG TABLET PO SCH (08:37)
[2017-10-03] MEDS: AMLODIPINE 5 MG TABLET PO SCH (08:37)
[2017-10-03] MEDS: DOCUSATE 100 MG CAPSULE PO SCH ×2 (08:37→20:37)
[2017-10-03 08:38] VITALS: BP 122/66
[2017-10-03] MEDS: HEPARIN 5,000 UNITS/ML, 1ML SQ SCH ×4 (08:38→23:26)
[2017-10-03] MEDS: FLUTICASONE NASAL SPRAY 16GM NAS SCH (08:44)
[2017-10-03] MEDS: SODIUM CHLORIDE FLUSH 10ML SYR IVF SCH ×2 (08:45→23:26)
[2017-10-03] MEDS: INSULIN GLARGINE 100 UNITS/ML, PEN SQ-INSULIN SCH ×2 (09:00→20:38)
[2017-10-03] MEDS: PANTOPROZOLE 40MG TABLET PO SCH (09:00)
[2017-10-03] MEDS ORDERED: FUROSEMIDE 40 MG/4 ML IV ONE (10:30)
[2017-10-03 12:00] LABS: ANA SCREEN NEGATIVE (Negative)
[2017-10-03] MEDS: NICOTINE 14MG/24 HR PATCH.TD24 TD SCH (12:30)
[2017-10-03 12:45] VITALS: BP 112/61
[2017-10-03] MEDS ORDERED: LIDOCAINE-MPF 1%, 2ML ONE (12:53)
[2017-10-03 15:12] VITALS: BP 144/71
[2017-10-03 17:43] VITALS: BP 110/63
[2017-10-03 19:18] VITALS: BP 113/63
[2017-10-04 02:03] VITALS: BP 125/68
[2017-10-04] MEDS: PIPERACILLIN/TAZO/PMX 3.375GM 50 ML IV SCH ×3 (05:05→18:05)
[2017-10-04] MEDS: INSULIN LISPRO 100 UNITS/ML, PEN SQ-INSULIN SCH ×4 (07:00→21:03)
[2017-10-04] MEDS: ALBUTEROL/IPRATROPIUM 2.5MG/0.5MG, 3 ML NPPB SCH ×4 (07:00→19:51)
[2017-10-04 07:07] LABS: ANION GAP 7 mmol/L (5-15); CALCIUM 8.3 mg/dL (8.5-10.1); CHLORIDE 103 mmol/L (98-107); CREATININE 3.76 mg/dL (0.7-1.3)
[2017-10-04 07:12] VITALS: BP 127/74
[2017-10-04] MEDS: HEPARIN 5,000 UNITS/ML, 1ML SQ SCH ×2 (08:00→16:20)
[2017-10-04] MEDS: DOCUSATE 100 MG CAPSULE PO SCH ×2 (09:00→22:33)
[2017-10-04] MEDS: FLUTICASONE NASAL SPRAY 16GM NAS SCH (09:00)
[2017-10-04] MEDS: INSULIN GLARGINE 100 UNITS/ML, PEN SQ-INSULIN SCH ×3 (09:00→21:02)
[2017-10-04] MEDS: LEVOTHYROXINE 50 MCG TABLET PO SCH (09:31)
[2017-10-04] MEDS: SODIUM CHLORIDE FLUSH 10ML SYR IVF SCH ×2 (09:32→22:43)
[2017-10-04] MEDS: AMLODIPINE 5 MG TABLET PO SCH (09:32)
[2017-10-04] MEDS: PANTOPROZOLE 40MG TABLET PO SCH (09:32)
[2017-10-04] MEDS: NICOTINE 14MG/24 HR PATCH.TD24 TD SCH (12:03)
[2017-10-04 13:35] VITALS: BP 131/61
[2017-10-04] MEDS ORDERED: FUROSEMIDE 100 MG/10 ML IV ONE (15:30)
[2017-10-04] MEDS: CEFTAROLINE 300 MG in SODIUM CHLORIDE 0.9% 100 ML IV SCH (16:20)
[2017-10-04] MEDS ORDERED: OXYcodone IR 5MG TABLET ONE (16:24)
[2017-10-04 19:08] VITALS: BP 114/60
[2017-10-04] MEDS: HYDROcodone/APAP 5/325 TABLET PO PRN (21:16)
[2017-10-04] MEDS: OXYcodone IR 30 MG TABLET PO PRN (22:31)
[2017-10-05 01:40] VITALS: BP 100/58
[2017-10-05] MEDS: HYDROcodone/APAP 5/325 TABLET PO PRN ×2 (02:45→21:23)
[2017-10-05] MEDS: OXYcodone IR 30 MG TABLET PO PRN (04:25)
[2017-10-05] MEDS: CEFTAROLINE 300 MG in SODIUM CHLORIDE 0.9% 100 ML IV SCH ×2 (04:25→20:54)
[2017-10-05 05:34] LABS: CHLORIDE 104 mmol/L (98-107)
[2017-10-05 05:40] LABS: BASOPHILS # (AUTO) 0.04 x10^3/uL (0-0.1); BASOPHILS % (AUTO) 0 % (0-1); EOSINOPHILS # (AUTO) 0.31 x10^3/uL (0-0.4); EOSINOPHILS % (AUTO) 3 % (1-7); LYMPHOCYTES # (AUTO) 2.18 x10^3/uL (1-3.4); LYMPHOCYTES % (AUTO) 21 % (22-44); MD NO; MEAN CORPUSCULAR HGB CONC 33.2 g/dL (33.2-36.2); MEAN CORPUSCULAR VOLUME 90.4 fL (81-97); MEAN PLATELET VOLUME 7.8 fL (7.4-10.4); MONOCYTES # (AUTO) 0.85 x10^3/uL (0.2-0.8); MONOCYTES % (AUTO) 8 % (2-9); NEUTROPHILS # (AUTO) 7.01 x10^3/uL (1.8-6.8); NEUTROPHILS % (AUTO) 68 % (42-75); PLATELET COUNT 449 x10^3/uL (130-400); RED BLOOD COUNT 3.89 x10^6/uL (4.38-5.82); RED CELL DISTRIBUTION WIDTH 14.9 % (9.4-14.8)
[2017-10-05 05:42] LABS: ANION GAP 7 mmol/L (5-15); CALCIUM 8.3 mg/dL (8.5-10.1); CREATININE 4.09 mg/dL (0.7-1.3)
[2017-10-05] MEDS: ALBUTEROL/IPRATROPIUM 2.5MG/0.5MG, 3 ML NPPB SCH ×4 (07:00→19:57)
[2017-10-05] MEDS: INSULIN LISPRO 100 UNITS/ML, PEN SQ-INSULIN SCH ×4 (07:00→21:24)
[2017-10-05 07:15] VITALS: BP 125/59
[2017-10-05] MEDS: DOCUSATE 100 MG CAPSULE PO SCH ×2 (09:00→20:54)
[2017-10-05] MEDS: FLUTICASONE NASAL SPRAY 16GM NAS SCH (09:00)
[2017-10-05] MEDS: SODIUM CHLORIDE FLUSH 10ML SYR IVF SCH ×2 (09:41→21:00)
[2017-10-05] MEDS: HEPARIN 5,000 UNITS/ML, 1ML SQ SCH ×3 (09:41→16:00)
[2017-10-05] MEDS: AMLODIPINE 5 MG TABLET PO SCH (09:42)
[2017-10-05] MEDS: LEVOTHYROXINE 50 MCG TABLET PO SCH (09:42)
[2017-10-05] MEDS: PANTOPROZOLE 40MG TABLET PO SCH (09:42)
[2017-10-05] MEDS: INSULIN GLARGINE 100 UNITS/ML, PEN SQ-INSULIN SCH ×2 (09:47→21:24)
[2017-10-05] MEDS: NICOTINE 14MG/24 HR PATCH.TD24 TD SCH (11:59)
[2017-10-05 14:05] VITALS: BP 131/72
[2017-10-05] MEDS ORDERED: OXYcodone IR 5MG TABLET ONE (16:14)
[2017-10-05 20:49] VITALS: BP 136/72
[2017-10-06 00:16] VITALS: BP 145/63
[2017-10-06 05:26] LABS: ANION GAP 7 mmol/L (5-15); CALCIUM 8.3 mg/dL (8.5-10.1); CHLORIDE 102 mmol/L (98-107)
[2017-10-06 05:27] LABS: CREATININE 3.35 mg/dL (0.7-1.3)
[2017-10-06] MEDS: INSULIN LISPRO 100 UNITS/ML, PEN SQ-INSULIN SCH ×4 (07:00→21:00)
[2017-10-06 07:23] VITALS: BP 152/65
[2017-10-06] MEDS: ALBUTEROL/IPRATROPIUM 2.5MG/0.5MG, 3 ML NPPB SCH ×4 (08:10→19:08)
[2017-10-06] MEDS: CEFTAROLINE 300 MG in SODIUM CHLORIDE 0.9% 100 ML IV SCH ×2 (08:48→20:57)
[2017-10-06] MEDS: INSULIN GLARGINE 100 UNITS/ML, PEN SQ-INSULIN SCH ×2 (08:55→21:01)
[2017-10-06] MEDS: SODIUM CHLORIDE FLUSH 10ML SYR IVF SCH ×2 (08:56→20:57)
[2017-10-06] MEDS: FLUTICASONE NASAL SPRAY 16GM NAS SCH (08:56)
[2017-10-06] MEDS: HEPARIN 5,000 UNITS/ML, 1ML SQ SCH ×3 (08:56→17:53)
[2017-10-06] MEDS: PANTOPROZOLE 40MG TABLET PO SCH (08:57)
[2017-10-06] MEDS: DOCUSATE 100 MG CAPSULE PO SCH ×2 (08:57→21:00)
[2017-10-06] MEDS: AMLODIPINE 5 MG TABLET PO SCH (08:57)
[2017-10-06] MEDS: LEVOTHYROXINE 50 MCG TABLET PO SCH (08:57)
[2017-10-06] MEDS ORDERED: OXYcodone IR 5MG TABLET ONE ×2 (10:20→20:40)
[2017-10-06] MEDS: OXYcodone IR 30 MG TABLET PO PRN (10:35)
[2017-10-06 13:14] VITALS: BP 137/74
[2017-10-06] MEDS ORDERED: DIPHENHYDRAMINE 50 MG/ML, 1ML IVPush ONE (14:00)
[2017-10-06] MEDS: NICOTINE 14MG/24 HR PATCH.TD24 TD SCH (16:00)
[2017-10-06 18:53] VITALS: BP 126/63
[2017-10-06] MEDS: OXYcodone IR 5MG TABLET PO PRN (21:12)
[2017-10-07] MEDS: HYDROcodone/APAP 5/325 TABLET PO PRN ×2 (01:05→23:17)
[2017-10-07] MEDS: HEPARIN 5,000 UNITS/ML, 1ML SQ SCH ×3 (01:05→16:50)
[2017-10-07 01:21] VITALS: BP 138/69
[2017-10-07] MEDS: OXYcodone IR 5MG TABLET PO PRN ×3 (06:03→19:34)
[2017-10-07] MEDS: INSULIN LISPRO 100 UNITS/ML, PEN SQ-INSULIN SCH ×4 (07:00→20:34)
[2017-10-07] MEDS: ALBUTEROL/IPRATROPIUM 2.5MG/0.5MG, 3 ML NPPB SCH ×4 (07:36→19:41)
[2017-10-07 07:38] VITALS: BP 140/70
[2017-10-07] MEDS: LEVOTHYROXINE 50 MCG TABLET PO SCH (08:28)
[2017-10-07] MEDS: PANTOPROZOLE 40MG TABLET PO SCH (08:28)
[2017-10-07] MEDS ORDERED: DIPHENHYDRAMINE 50 MG/ML, 1ML IVPush ONE (08:30)
[2017-10-07] MEDS ORDERED: DIPHENHYDRAMINE 12.5MG/5ML, 10ML UDC ONE (08:31)
[2017-10-07] MEDS: INSULIN GLARGINE 100 UNITS/ML, PEN SQ-INSULIN SCH ×2 (08:32→20:33)
[2017-10-07] MEDS ORDERED: DIPHENHYDRAMINE 50 MG/ML, 1ML ONE (08:33)
[2017-10-07] MEDS: SODIUM CHLORIDE FLUSH 10ML SYR IVF SCH ×2 (08:37→20:33)
[2017-10-07] MEDS: DOCUSATE 100 MG CAPSULE PO SCH ×2 (08:37→20:33)
[2017-10-07] MEDS: AMLODIPINE 5 MG TABLET PO SCH (08:37)
[2017-10-07] MEDS: FLUTICASONE NASAL SPRAY 16GM NAS SCH (08:37)
[2017-10-07] MEDS: CEFTAROLINE 300 MG in SODIUM CHLORIDE 0.9% 100 ML IV SCH (13:32)
[2017-10-07 14:54] VITALS: BP 131/70
[2017-10-07] MEDS: NICOTINE 14MG/24 HR PATCH.TD24 TD SCH (16:00)
[2017-10-07 18:32] VITALS: BP 132/68
[2017-10-08] MEDS: HEPARIN 5,000 UNITS/ML, 1ML SQ SCH (01:36)
[2017-10-08] MEDS: CEFTAROLINE 300 MG in SODIUM CHLORIDE 0.9% 100 ML IV SCH ×2 (01:36→13:30)
[2017-10-08] MEDS: OXYcodone IR 5MG TABLET PO PRN ×3 (01:36→20:27)
[2017-10-08 02:00] VITALS: BP 123/73
[2017-10-08 05:08] LABS: BASOPHILS # (AUTO) 0.04 x10^3/uL (0-0.1); BASOPHILS % (AUTO) 0 % (0-1); EOSINOPHILS # (AUTO) 0.26 x10^3/uL (0-0.4); EOSINOPHILS % (AUTO) 2 % (1-7); LYMPHOCYTES # (AUTO) 2.07 x10^3/uL (1-3.4); LYMPHOCYTES % (AUTO) 17 % (22-44); MD NO; MEAN CORPUSCULAR HEMOGLOBIN 29.2 pg (27.5-34.5); MEAN CORPUSCULAR HGB CONC 32.5 g/dL (33.2-36.2); MEAN CORPUSCULAR VOLUME 89.9 fL (81-97); MEAN PLATELET VOLUME 7.2 fL (7.4-10.4); MONOCYTES # (AUTO) 1.01 x10^3/uL (0.2-0.8); MONOCYTES % (AUTO) 8 % (2-9); NEUTROPHILS # (AUTO) 8.82 x10^3/uL (1.8-6.8); NEUTROPHILS % (AUTO) 72 % (42-75); PLATELET COUNT 469 x10^3/uL (130-400); RED BLOOD COUNT 4.38 x10^6/uL (4.38-5.82); RED CELL DISTRIBUTION WIDTH 14.8 % (9.4-14.8)
[2017-10-08 05:21] LABS: ANION GAP 5 mmol/L (5-15); CALCIUM 8.5 mg/dL (8.5-10.1); CHLORIDE 98 mmol/L (98-107)
[2017-10-08 05:24] LABS: CREATININE 3.55 mg/dL (0.7-1.3)
[2017-10-08] MEDS: ALBUTEROL/IPRATROPIUM 2.5MG/0.5MG, 3 ML NPPB SCH ×4 (07:31→19:09)
[2017-10-08 08:00] VITALS: BP 136/75
[2017-10-08] MEDS: FLUTICASONE NASAL SPRAY 16GM NAS SCH ×2 (08:50→08:55)
[2017-10-08] MEDS: PANTOPROZOLE 40MG TABLET PO SCH (08:51)
[2017-10-08] MEDS: LEVOTHYROXINE 50 MCG TABLET PO SCH (08:51)
[2017-10-08] MEDS: INSULIN GLARGINE 100 UNITS/ML, PEN SQ-INSULIN SCH (08:52)
[2017-10-08] MEDS: INSULIN LISPRO 100 UNITS/ML, PEN SQ-INSULIN SCH ×4 (08:53→21:03)
[2017-10-08] MEDS: DOCUSATE 100 MG CAPSULE PO SCH ×2 (08:55→20:27)
[2017-10-08] MEDS: SODIUM CHLORIDE FLUSH 10ML SYR IVF SCH ×2 (09:00→20:29)
[2017-10-08] MEDS: HYDROcodone/APAP 5/325 TABLET PO PRN ×2 (09:17→18:19)
[2017-10-08] MEDS: DIPHENHYDRAMINE 50 MG/ML, 1ML IVPush ONE ×2 (09:17→09:50)
[2017-10-08 12:04] VITALS: BP 125/71
[2017-10-08] MEDS: AMLODIPINE 5 MG TABLET PO SCH (12:07)
[2017-10-08] MEDS: NICOTINE 14MG/24 HR PATCH.TD24 TD SCH (16:00)
[2017-10-08] MEDS: VANCOMYCIN 2,000 MG in SODIUM CHLORIDE 0.9% 250 ML IV SCH (20:27)
[2017-10-08] MEDS ORDERED: INSULIN GLARGINE 100 UNITS/ML, PEN SQ-INSULIN SCH (21:00)
[2017-10-08 21:01] VITALS: BP 132/73
[2017-10-09 01:57] VITALS: BP 122/70
[2017-10-09] MEDS: HYDROcodone/APAP 5/325 TABLET PO PRN ×2 (02:24→21:31)
[2017-10-09 05:33] LABS: BASOPHILS # (AUTO) 0.12 x10^3/uL (0-0.1); BASOPHILS % (AUTO) 1 % (0-1); EOSINOPHILS # (AUTO) 0.26 x10^3/uL (0-0.4); EOSINOPHILS % (AUTO) 2 % (1-7); LYMPHOCYTES # (AUTO) 1.68 x10^3/uL (1-3.4); LYMPHOCYTES % (AUTO) 13 % (22-44); MD NO; MEAN CORPUSCULAR HEMOGLOBIN 29.8 pg (27.5-34.5); MEAN CORPUSCULAR VOLUME 90.3 fL (81-97); MEAN PLATELET VOLUME 7.1 fL (7.4-10.4); MONOCYTES # (AUTO) 1.25 x10^3/uL (0.2-0.8); MONOCYTES % (AUTO) 10 % (2-9); NEUTROPHILS # (AUTO) 9.33 x10^3/uL (1.8-6.8); NEUTROPHILS % (AUTO) 74 % (42-75); PLATELET COUNT 388 x10^3/uL (130-400); RED BLOOD COUNT 4.31 x10^6/uL (4.38-5.82); RED CELL DISTRIBUTION WIDTH 14.9 % (9.4-14.8)
[2017-10-09 05:46] LABS: ANION GAP 11 mmol/L (5-15); CALCIUM 8.9 mg/dL (8.5-10.1); CHLORIDE 100 mmol/L (98-107); CREATININE 4.76 mg/dL (0.7-1.3)
[2017-10-09 06:40] VITALS: BP 114/68
[2017-10-09] MEDS: INSULIN LISPRO 100 UNITS/ML, PEN SQ-INSULIN SCH ×4 (07:00→21:33)
[2017-10-09] MEDS: ALBUTEROL/IPRATROPIUM 2.5MG/0.5MG, 3 ML NPPB SCH ×4 (08:05→19:55)
[2017-10-09] MEDS: DOCUSATE 100 MG CAPSULE PO SCH ×2 (08:58→21:31)
[2017-10-09] MEDS: LEVOTHYROXINE 50 MCG TABLET PO SCH (08:59)
[2017-10-09] MEDS: SODIUM CHLORIDE FLUSH 10ML SYR IVF SCH ×2 (08:59→21:00)
[2017-10-09] MEDS: PANTOPROZOLE 40MG TABLET PO SCH (08:59)
[2017-10-09] MEDS: FLUTICASONE NASAL SPRAY 16GM NAS SCH (09:00)
[2017-10-09] MEDS: INSULIN GLARGINE 100 UNITS/ML, PEN SQ-INSULIN SCH ×2 (09:00→21:32)
[2017-10-09 12:30] VITALS: BP 148/72
[2017-10-09] MEDS ORDERED: FENTANYL PF 100 MCG/2ML ONE ×2 (14:41→14:42)
[2017-10-09] MEDS ORDERED: NALOXONE 1 MG/ML, 2ML ONE (14:42)
[2017-10-09] MEDS ORDERED: MIDAZOLAM 1 MG/ML, 5ML ONE (14:42)
[2017-10-09] MEDS ORDERED: FLUMAZENIL 0.1 MG/1 ML, 5ML ONE (14:42)
[2017-10-09] MEDS ORDERED: LIDOCAINE-MPF 2% ,5ML ONE (14:54)
[2017-10-09] MEDS: NICOTINE 14MG/24 HR PATCH.TD24 TD SCH (16:00)
[2017-10-09 17:16] VITALS: BP 149/75
[2017-10-09] MEDS: AMLODIPINE 5 MG TABLET PO SCH (17:17)
[2017-10-09] MEDS: OXYcodone IR 5MG TABLET PO PRN ×2 (17:20→23:15)
[2017-10-09 19:26] VITALS: BP 155/70
[2017-10-10 01:20] VITALS: BP 115/70
[2017-10-10] MEDS: HYDROcodone/APAP 5/325 TABLET PO PRN ×4 (02:27→21:42)
[2017-10-10 05:19] LABS: BASOPHILS # (AUTO) 0.02 x10^3/uL (0-0.1); BASOPHILS % (AUTO) 0 % (0-1); EOSINOPHILS % (AUTO) 2 % (1-7); LYMPHOCYTES # (AUTO) 1.42 x10^3/uL (1-3.4); LYMPHOCYTES % (AUTO) 11 % (22-44); MD NO; MEAN CORPUSCULAR HEMOGLOBIN 29.5 pg (27.5-34.5); MEAN CORPUSCULAR HGB CONC 32.2 g/dL (33.2-36.2); MEAN CORPUSCULAR VOLUME 91.6 fL (81-97); MEAN PLATELET VOLUME 7.5 fL (7.4-10.4); MONOCYTES # (AUTO) 0.98 x10^3/uL (0.2-0.8); MONOCYTES % (AUTO) 7 % (2-9); NEUTROPHILS # (AUTO) 10.95 x10^3/uL (1.8-6.8); NEUTROPHILS % (AUTO) 81 % (42-75); PLATELET COUNT 399 x10^3/uL (130-400); RED BLOOD COUNT 3.72 x10^6/uL (4.38-5.82); RED CELL DISTRIBUTION WIDTH 14.7 % (9.4-14.8)
[2017-10-10 05:29] LABS: ANION GAP 7 mmol/L (5-15); CALCIUM 8.6 mg/dL (8.5-10.1); CHLORIDE 99 mmol/L (98-107); CREATININE 5.52 mg/dL (0.7-1.3)
[2017-10-10] MEDS: OXYcodone IR 5MG TABLET PO PRN (06:36)
[2017-10-10] MEDS: ALBUTEROL/IPRATROPIUM 2.5MG/0.5MG, 3 ML NPPB SCH ×4 (07:00→20:03)
[2017-10-10] MEDS: INSULIN LISPRO 100 UNITS/ML, PEN SQ-INSULIN SCH ×4 (07:00→21:44)
[2017-10-10] MEDS: HEPARIN 5,000 UNITS/ML, 1ML SQ SCH ×3 (07:00→21:44)
[2017-10-10 07:07] LABS: HCT (SEDRATE) 34.1 % (39.2-51.8)
[2017-10-10 08:02] VITALS: BP 133/67
[2017-10-10] MEDS: DOCUSATE 100 MG CAPSULE PO SCH ×2 (09:00→21:00)
[2017-10-10] MEDS: AMLODIPINE 5 MG TABLET PO SCH (09:00)
[2017-10-10] MEDS: FLUTICASONE NASAL SPRAY 16GM NAS SCH (09:00)
[2017-10-10] MEDS ORDERED: DIPHENHYDRAMINE 50 MG/ML, 1ML IV ONE (09:30)
[2017-10-10] MEDS: LEVOTHYROXINE 50 MCG TABLET PO SCH (09:36)
[2017-10-10] MEDS: AMMONIUM LACTATE 12% TP PRN ×2 (09:37→21:45)
[2017-10-10] MEDS: PANTOPROZOLE 40MG TABLET PO SCH (09:37)
[2017-10-10] MEDS: SODIUM CHLORIDE FLUSH 10ML SYR IVF SCH ×2 (09:38→21:00)
[2017-10-10] MEDS: INSULIN GLARGINE 100 UNITS/ML, PEN SQ-INSULIN SCH ×2 (09:39→21:44)
[2017-10-10 13:00] VITALS: BP 113/67
[2017-10-10] MEDS: VANCOMYCIN 2,000 MG in SODIUM CHLORIDE 0.9% 250 ML IV SCH (14:59)
[2017-10-10] MEDS: NICOTINE 14MG/24 HR PATCH.TD24 TD SCH (16:00)
[2017-10-10] MEDS ORDERED: OXYcodone IR 5MG TABLET ONE ×2 (16:14→22:50)
[2017-10-10] MEDS: OXYcodone IR 30 MG TABLET PO PRN ×2 (16:20→22:56)
[2017-10-10 20:00] VITALS: BP 131/78
[2017-10-11 01:11] VITALS: BP 129/78
[2017-10-11] MEDS: HEPARIN 5,000 UNITS/ML, 1ML SQ SCH ×3 (01:50→17:37)
[2017-10-11] MEDS ORDERED: OXYcodone IR 5MG TABLET ONE (04:54)
[2017-10-11] MEDS: OXYcodone IR 30 MG TABLET PO PRN ×3 (04:56→21:06)
[2017-10-11 05:49] LABS: BASOPHILS # (AUTO) 0.07 x10^3/uL (0-0.1); BASOPHILS % (AUTO) 1 % (0-1); EOSINOPHILS # (AUTO) 0.34 x10^3/uL (0-0.4); EOSINOPHILS % (AUTO) 2 % (1-7); LYMPHOCYTES # (AUTO) 1.87 x10^3/uL (1-3.4); LYMPHOCYTES % (AUTO) 13 % (22-44); MD NO; MEAN CORPUSCULAR HEMOGLOBIN 29.7 pg (27.5-34.5); MEAN CORPUSCULAR HGB CONC 33.2 g/dL (33.2-36.2); MEAN CORPUSCULAR VOLUME 89.7 fL (81-97); MEAN PLATELET VOLUME 7.5 fL (7.4-10.4); MONOCYTES # (AUTO) 1.01 x10^3/uL (0.2-0.8); MONOCYTES % (AUTO) 7 % (2-9); NEUTROPHILS # (AUTO) 11.69 x10^3/uL (1.8-6.8); NEUTROPHILS % (AUTO) 78 % (42-75); PLATELET COUNT 361 x10^3/uL (130-400); RED BLOOD COUNT 3.93 x10^6/uL (4.38-5.82); RED CELL DISTRIBUTION WIDTH 14.9 % (9.4-14.8)
[2017-10-11] MEDS: ALBUTEROL/IPRATROPIUM 2.5MG/0.5MG, 3 ML NPPB SCH ×4 (07:00→20:06)
[2017-10-11 08:08] VITALS: BP 122/70
[2017-10-11] MEDS: SODIUM CHLORIDE FLUSH 10ML SYR IVF SCH ×2 (09:00→21:00)
[2017-10-11] MEDS: DOCUSATE 100 MG CAPSULE PO SCH ×2 (09:00→21:00)
[2017-10-11] MEDS: FLUTICASONE NASAL SPRAY 16GM NAS SCH (09:00)
[2017-10-11] MEDS: INSULIN LISPRO 100 UNITS/ML, PEN SQ-INSULIN SCH ×4 (09:39→21:08)
[2017-10-11] MEDS: INSULIN GLARGINE 100 UNITS/ML, PEN SQ-INSULIN SCH ×2 (09:39→21:09)
[2017-10-11] MEDS: PANTOPROZOLE 40MG TABLET PO SCH (09:40)
[2017-10-11] MEDS: AMLODIPINE 5 MG TABLET PO SCH (09:40)
[2017-10-11] MEDS: LEVOTHYROXINE 50 MCG TABLET PO SCH (09:41)
[2017-10-11 13:22] VITALS: BP 129/78
[2017-10-11] MEDS: NICOTINE 14MG/24 HR PATCH.TD24 TD SCH (16:00)
[2017-10-11] MEDS: AMMONIUM LACTATE 12% TP PRN (17:45)
[2017-10-11 19:09] VITALS: BP 117/73
[2017-10-12 01:42] VITALS: BP 124/65
[2017-10-12] MEDS: OXYcodone IR 30 MG TABLET PO PRN ×4 (03:06→23:02)
[2017-10-12 05:20] LABS: BASOPHILS # (AUTO) 0.05 x10^3/uL (0-0.1); BASOPHILS % (AUTO) 0 % (0-1); EOSINOPHILS # (AUTO) 0.22 x10^3/uL (0-0.4); EOSINOPHILS % (AUTO) 1 % (1-7); LYMPHOCYTES # (AUTO) 2.12 x10^3/uL (1-3.4); LYMPHOCYTES % (AUTO) 14 % (22-44); MD NO; MEAN CORPUSCULAR HEMOGLOBIN 29.7 pg (27.5-34.5); MEAN PLATELET VOLUME 7.6 fL (7.4-10.4); MONOCYTES # (AUTO) 0.94 x10^3/uL (0.2-0.8); MONOCYTES % (AUTO) 6 % (2-9); NEUTROPHILS # (AUTO) 12.31 x10^3/uL (1.8-6.8); NEUTROPHILS % (AUTO) 79 % (42-75); PLATELET COUNT 342 x10^3/uL (130-400); RED BLOOD COUNT 4.17 x10^6/uL (4.38-5.82); RED CELL DISTRIBUTION WIDTH 14.8 % (9.4-14.8)
[2017-10-12 06:47] VITALS: BP 125/76
[2017-10-12] MEDS: ALBUTEROL/IPRATROPIUM 2.5MG/0.5MG, 3 ML NPPB SCH ×4 (07:00→19:04)
[2017-10-12] MEDS: INSULIN LISPRO 100 UNITS/ML, PEN SQ-INSULIN SCH ×4 (07:43→21:14)
[2017-10-12] MEDS: INSULIN GLARGINE 100 UNITS/ML, PEN SQ-INSULIN SCH ×2 (08:25→21:15)
[2017-10-12] MEDS: AMLODIPINE 5 MG TABLET PO SCH (08:31)
[2017-10-12] MEDS: PANTOPROZOLE 40MG TABLET PO SCH (08:32)
[2017-10-12] MEDS: LEVOTHYROXINE 50 MCG TABLET PO SCH (08:33)
[2017-10-12] MEDS: HEPARIN 5,000 UNITS/ML, 1ML SQ SCH ×2 (08:34→16:29)
[2017-10-12] MEDS: SODIUM CHLORIDE FLUSH 10ML SYR IVF SCH ×2 (08:40→21:00)
[2017-10-12] MEDS: FLUTICASONE NASAL SPRAY 16GM NAS SCH (08:40)
[2017-10-12] MEDS: DOCUSATE 100 MG CAPSULE PO SCH ×2 (08:40→21:00)
[2017-10-12 12:18] VITALS: BP 148/78
[2017-10-12] MEDS: NICOTINE 14MG/24 HR PATCH.TD24 TD SCH (15:32)
[2017-10-12] MEDS: HYDROcodone/APAP 5/325 TABLET PO PRN (17:43)
[2017-10-12 20:16] VITALS: BP 113/65
[2017-10-13] MEDS: HEPARIN 5,000 UNITS/ML, 1ML SQ SCH ×3 (01:28→16:24)
[2017-10-13 02:07] VITALS: BP 127/70
[2017-10-13 05:03] LABS: MEAN CORPUSCULAR HEMOGLOBIN 29.4 pg (27.5-34.5); MEAN CORPUSCULAR HGB CONC 32.6 g/dL (33.2-36.2); MEAN CORPUSCULAR VOLUME 90.1 fL (81-97); MEAN PLATELET VOLUME 7.5 fL (7.4-10.4); PLATELET COUNT 334 x10^3/uL (130-400); RED BLOOD COUNT 3.85 x10^6/uL (4.38-5.82); RED CELL DISTRIBUTION WIDTH 14.6 % (9.4-14.8)
[2017-10-13 05:48] LABS: BASOPHILS # (AUTO) 0.13 x10^3/uL (0-0.1); BASOPHILS % (AUTO) 1 % (0-1); EOSINOPHILS # (AUTO) 0.28 x10^3/uL (0-0.4); EOSINOPHILS % (AUTO) 2 % (1-7); LYMPHOCYTES # (AUTO) 1.86 x10^3/uL (1-3.4); LYMPHOCYTES % (AUTO) 11 % (22-44); MD SCAN; MONOCYTES % (AUTO) 7 % (2-9); NEUTROPHILS # (AUTO) 13.83 x10^3/uL (1.8-6.8); NEUTROPHILS % (AUTO) 80 % (42-75)
[2017-10-13] MEDS: OXYcodone IR 30 MG TABLET PO PRN ×3 (06:27→18:10)
[2017-10-13 06:58] VITALS: BP 143/62
[2017-10-13] MEDS: ALBUTEROL/IPRATROPIUM 2.5MG/0.5MG, 3 ML NPPB SCH ×4 (07:00→19:40)
[2017-10-13] MEDS: INSULIN LISPRO 100 UNITS/ML, PEN SQ-INSULIN SCH ×3 (07:00→16:00)
[2017-10-13] MEDS: FLUTICASONE NASAL SPRAY 16GM NAS SCH (09:00)
[2017-10-13] MEDS: AMLODIPINE 5 MG TABLET PO SCH (09:31)
[2017-10-13] MEDS: PANTOPROZOLE 40MG TABLET PO SCH (09:31)
[2017-10-13] MEDS: LEVOTHYROXINE 50 MCG TABLET PO SCH (09:32)
[2017-10-13] MEDS: DOCUSATE 100 MG CAPSULE PO SCH (09:32)
[2017-10-13] MEDS: SODIUM CHLORIDE FLUSH 10ML SYR IVF SCH (09:38)
[2017-10-13] MEDS ORDERED: INSU100I13 SQ-INSULIN (10:20)
[2017-10-13] MEDS ORDERED: AMLO5TAB2 PO (10:20)
[2017-10-13] MEDS: INSULIN GLARGINE 100 UNITS/ML, PEN SQ-INSULIN SCH (10:43)
[2017-10-13] MEDS ORDERED: OXYcodone IR 5MG TABLET ONE ×2 (11:30→17:54)
[2017-10-13 12:16] VITALS: BP 147/74
[2017-10-13] MEDS ORDERED: VANCOMYCIN 2,100 MG in SODIUM CHLORIDE 0.9% 500 ML IV SCH (13:00)
[2017-10-13] MEDS ORDERED: VANCOMYCIN 2,100 MG in SODIUM CHLORIDE 0.9% 500 ML IV ONE (14:30)
[2017-10-13] MEDS: NICOTINE 14MG/24 HR PATCH.TD24 TD SCH (16:00)
[2017-10-13] MEDS ORDERED: DAPTOMYCIN 750 MG in SODIUM CHLORIDE 0.9% 100 ML IV SCH (16:00)
== END 2017-10-13 19:46 | DRG 871 ==
LOC: ED 06:35 → EDIP 09:59 → CCU 13:38 → ICU 09-29 17:21 → 4NOR 09-30 12:48 → 3NE 10-03 17:16 → 4EST 10-06 11:04
PROVIDERS: ADMIT Internal Medicine; ATTEND Internal Medicine
PROC: 5A09357 Assistance with Respiratory Ventilation, Less than 24 Consecutive Hours, Continuous Positive Airway Pressure (ICD-10-PCS; 2017-09-28)
PROC: 02HV33Z Insertion of Infusion Device into Superior Vena Cava, Percutaneous Approach (ICD-10-PCS; principal; 2017-10-05)
PROC: B548ZZA Ultrasonography of Superior Vena Cava, Guidance (ICD-10-PCS; 2017-10-05)
PROC: 5A1D70Z Performance of Urinary Filtration, Intermittent, Less than 6 Hours Per Day (ICD-10-PCS; 2017-10-06)
PROC: 5A1D70Z Performance of Urinary Filtration, Intermittent, Less than 6 Hours Per Day (ICD-10-PCS; 2017-10-07)
PROC: 5A1D70Z Performance of Urinary Filtration, Intermittent, Less than 6 Hours Per Day (ICD-10-PCS; 2017-10-08)
PROC: 0JH63XZ Insertion of Tunneled Vascular Access Device into Chest Subcutaneous Tissue and Fascia, Percutaneous Approach (ICD-10-PCS; 2017-10-09)
PROC: 02HV33Z Insertion of Infusion Device into Superior Vena Cava, Percutaneous Approach (ICD-10-PCS; 2017-10-09)
PROC: B5181ZA Fluoroscopy of Superior Vena Cava using Low Osmolar Contrast, Guidance (ICD-10-PCS; 2017-10-09)
PROC: B548ZZA Ultrasonography of Superior Vena Cava, Guidance (ICD-10-PCS; 2017-10-09)
PROC: 5A1D70Z Performance of Urinary Filtration, Intermittent, Less than 6 Hours Per Day (ICD-10-PCS; 2017-10-10)
PROC: 5A1D70Z Performance of Urinary Filtration, Intermittent, Less than 6 Hours Per Day (ICD-10-PCS; 2017-10-11)
PROC: 5A1D70Z Performance of Urinary Filtration, Intermittent, Less than 6 Hours Per Day (ICD-10-PCS; 2017-10-13)
DX: A40.9 Streptococcal sepsis, unspecified (principal); J18.9 Pneumonia, unspecified organism; G93.41 Metabolic encephalopathy; J96.21 Acute and chronic respiratory failure with hypoxia; N17.0 Acute kidney failure with tubular necrosis; J44.0 Chronic obstructive pulmonary disease with (acute) lower respiratory infection; J98.11 Atelectasis; Z68.43 Body mass index [BMI] 50.0-59.9, adult; M86.172 Other acute osteomyelitis, left ankle and foot; R65.20 Severe sepsis without septic shock; I27.81 Cor pulmonale (chronic); I10 Essential (primary) hypertension; Z88.8 Allergy status to other drugs, medicaments and biological substances; B19.20 Unspecified viral hepatitis C without hepatic coma; E03.9 Hypothyroidism, unspecified; E11.22 Type 2 diabetes mellitus with diabetic chronic kidney disease; E11.42 Type 2 diabetes mellitus with diabetic polyneuropathy; E11.621 Type 2 diabetes mellitus with foot ulcer; E11.69 Type 2 diabetes mellitus with other specified complication; E66.01 Morbid (severe) obesity due to excess calories; E78.5 Hyperlipidemia, unspecified; E86.0 Dehydration; F17.210 Nicotine dependence, cigarettes, uncomplicated; G47.33 Obstructive sleep apnea (adult) (pediatric); I12.9 Hypertensive chronic kidney disease with stage 1 through stage 4 chronic kidney disease, or unspecified chronic kidney disease; K29.70 Gastritis, unspecified, without bleeding; L97.519 Non-pressure chronic ulcer of other part of right foot with unspecified severity; L97.529 Non-pressure chronic ulcer of other part of left foot with unspecified severity; M19.90 Unspecified osteoarthritis, unspecified site; Z66 Do not resuscitate; Z79.4 Long term (current) use of insulin; Z83.3 Family history of diabetes mellitus; Z86.73 Personal history of transient ischemic attack (TIA), and cerebral infarction without residual deficits; Z87.442 Personal history of urinary calculi; N18.9 Chronic kidney disease, unspecified; Z99.2 Dependence on renal dialysis; Z99.81 Dependence on supplemental oxygen; Z53.29 Procedure and treatment not carried out because of patient's decision for other reasons; Z86.14 Personal history of Methicillin resistant Staphylococcus aureus infection
CPT/HCPCS: 36415; 36556; 36558; 36600; 71045; 76770; 76937; 77001; 80048; 80053; 80202; 81001; 82010; 82043; 82140; 82550; 82570; 82607; 82800; 82803; 82805; 82947; 82962; 83036; 83605; 83735; 83880; 84100; 84145; 84156; 84300; 84443; 84484; 84550; 85025; 85379; 85610; 85651; 85730; 86038; 86140; 86141; 86160; 86162; 86480; 86704; 86706; 86803; 87040; 87070; 87077; 87081; 87086; 87106; 87147; 87181; 87186; 87205; 87340; 87521; 93005; 93306; 93922; 93970; 94640; 94660; 96361; 96374; 96375; 99156; 99157; C1894; J0696; J0712; J0878; J1644; J1940; J2250; J2543; J3010; J3370; J3475; J3490; J7060; J7620; C1750; C1751; J1200; J1642; J1815; J2060; J2310; J7030; J7040; J7050

== ENCOUNTER 2017-11-21 18:35 | Emergency (ER) | payer MEDICARE, MEDICAID ==
[~2017-11-21] VITALS: Ht 180.3 cm; Wt 144.4 kg
[~2017-11-21 18:35] MED LIST changes: +AMLO5TAB2 PO; +FLUT1BLS INH; +INSU100I13 SQ-INSULIN; -IPRA3AMP INH; +IPRA3AMP30 INH
[2017-11-21 19:24] LABS: BASOPHILS # (AUTO) 0.07 x10^3/uL (0-0.1); BASOPHILS % (AUTO) 1 % (0-1); EOSINOPHILS # (AUTO) 0.32 x10^3/uL (0-0.4); EOSINOPHILS % (AUTO) 4 % (1-7); LYMPHOCYTES # (AUTO) 2.42 x10^3/uL (1-3.4); LYMPHOCYTES % (AUTO) 29 % (22-44); MD NO; MEAN CORPUSCULAR HEMOGLOBIN 30.4 pg (27.5-34.5); MEAN CORPUSCULAR HGB CONC 33.5 g/dL (33.2-36.2); MEAN PLATELET VOLUME 7.7 fL (7.4-10.4); MONOCYTES % (AUTO) 9 % (2-9); NEUTROPHILS # (AUTO) 4.83 x10^3/uL (1.8-6.8); NEUTROPHILS % (AUTO) 57 % (42-75); PLATELET COUNT 352 x10^3/uL (130-400); RED CELL DISTRIBUTION WIDTH 15.3 % (9.4-14.8)
[2017-11-21 19:26] LABS: INTERNATIONAL NORMALIZED RATIO 0.94 (0.93-1.1); PROTHROMBIN TIME 9.7 Seconds (9.6-11.5)
[2017-11-21 19:32] LABS: ALBUMIN 2.9 g/dL (3.4-5.0); ANION GAP 12 mmol/L (5-15); CALCIUM 8.4 mg/dL (8.5-10.1); CHLORIDE 100 mmol/L (98-107)
[2017-11-21 19:33] LABS: CREATININE 3.97 mg/dL (0.7-1.3)
[2017-11-21 21:17] VITALS: BP 136/79
== END 2017-11-21 21:38 | disposition home or self-care (01) ==
LOC: ED 21:32
DX: I87.2 Venous insufficiency (chronic) (peripheral) (principal); R60.0 Localized edema; E11.65 Type 2 diabetes mellitus with hyperglycemia; I10 Essential (primary) hypertension; R79.89 Other specified abnormal findings of blood chemistry; J44.9 Chronic obstructive pulmonary disease, unspecified; E66.9 Obesity, unspecified; Z68.41 Body mass index [BMI] 40.0-44.9, adult
CPT/HCPCS: 36415; 80048; 82040; 85025; 85610; 99285

== ENCOUNTER 2020-10-26 21:52 | Inpatient (IN) | payer MEDICARE, MEDICAID ==
[~2020-10-26] VITALS: Ht 180.3 cm; Wt 162.0 kg
[~2020-10-26 21:52] MED LIST changes: +AMLO-150 PO; +AMLO-211 PO; -AMLO10TA2 PO; -AMLO5TAB2 PO; +ASPI81TA45 PO; +ATOR-2 PO; +CARV3.1212 PO; +FURO-92 PO; -GABA600T2 PO; +GABA600T7 PO; +HYDR-3342 PO; +ISOS30TA8 PO; -OXYC30TA PO; +OXYC30TA3 PO; -PANT40TA5 PO; +PANT40TA6 PO
[2020-10-26 22:44] LABS: BASOPHILS % (AUTO) 0 % (0-1); EOSINOPHILS % (AUTO) 1 % (1-7); LYMPHOCYTES % (AUTO) 6 % (22-44); MEAN CORPUSCULAR HEMOGLOBIN 29.2 pg (27.5-34.5); MEAN CORPUSCULAR HGB CONC 32.9 g/dL (33.2-36.2); MEAN PLATELET VOLUME 7.4 fL (7.4-10.4); MONOCYTES % (AUTO) 7 % (2-9); NEUTROPHILS % (AUTO) 86 % (42-75); PLATELET COUNT 303 x10^3/uL (130-400); RED BLOOD COUNT 2.78 x10^6/uL (4.38-5.82); RED CELL DISTRIBUTION WIDTH 16.4 % (9.4-14.8)
[2020-10-26 22:46] LABS: HCT (SEDRATE) 24.7 % (39.2-51.8)
[2020-10-26 22:57] LABS: ALBUMIN 2.3 g/dL (3.4-5.0); ANION GAP 5 mmol/L (5-15); CALCIUM 8.4 mg/dL (8.5-10.1); CHLORIDE 107 mmol/L (98-107); CREATININE 3.23 mg/dL (0.7-1.3)
--- NOTE | 2020-10-26 23:10 | NUR ---
UPDATED ON PLAN OF CARE. NO NOTED ADDITIONAL NEEDS AT THIS TIME. CALL LIGHT WITHIN REACH, BED IN LOWEST LOCKED POSITION, SIDE RAILS X 2 UP. VSS. WILL CONTINUE TO MONITOR.
--- NOTE | 2020-10-26 23:10 | NUR ---
PATIENT REFUSES TO BE PLACED IN TO BED, REQUESTED TO HAVE LEGS OFF BED R/T HERNIA. PATIENT STATED THAT HE CAN NOT LAY IN BED WITHOUT HIS FEET BENEATH HIM. PATIENT AWARE OF POLICIES AND FALL RISK COMPLICATIONS. PATIENT VERBALIZES UNDERSTANDING, CONTINUES TO REFUSE TO HAVE SAFETY MEASURES IN PLACE.
[2020-10-26] MEDS ORDERED: OXYcodone IR 5MG TABLET PO PRN (23:30)
[2020-10-26] MEDS ORDERED: OXYcodone IR 5MG TABLET ONE (23:38)
[2020-10-27] MEDS ORDERED: CEFTRIAXONE 2 GM in DEXTROSE 5% 50 ML IVPB ONE (01:30)
[2020-10-27] MEDS ORDERED: VANCOMYCIN PER PHARMACY MC PRN ×2 (01:30→02:30)
[2020-10-27 02:30] VITALS: BP 157/74
[2020-10-27] MEDS ORDERED: ACETAMINOPHEN 325 MG TABLET PO PRN (02:30)
[2020-10-27] MEDS ORDERED: ONDANSETRON 2MG/ML, 2ML IVPush PRN (02:30)
[2020-10-27] MEDS ORDERED: PHARMACY MAY ADJ FOR RENAL FX MC PRN (02:30)
[2020-10-27] MEDS ORDERED: POLYETHYLENE GLYCOL 17 GM PACKET PO PRN (02:30)
[2020-10-27] MEDS ORDERED: LABETALOL 5MG/ML, 20ML IVPush PRN (02:30)
[2020-10-27] MEDS ORDERED: MELATONIN 5 MG TABLET PO PRN (02:30)
[2020-10-27 02:45] VITALS: BP 157/74
[2020-10-27] MEDS ORDERED: CEFEPIME 2 GM in DEXTROSE 5% 100 ML IV SCH (03:00)
[2020-10-27] MEDS ORDERED: PHARMACOKINETIC MONITORING MC PRN (03:00)
[2020-10-27] MEDS ORDERED: VANCOMYCIN 2,500 MG in SODIUM CHLORIDE 0.9% 500 ML IV ONE (03:30)
[2020-10-27] MEDS ORDERED: PLEASE ENTER HEIGHT AND WEIGHT MC SCH (03:30)
[2020-10-27] MEDS: HYDROmorphone 2 MG/ML, 1ML IVPush PRN ×2 (03:55→07:48)
[2020-10-27] MEDS: SODIUM CHLORIDE 0.9% 1,000 ML IV SCH ×2 (07:49→17:13)
[2020-10-27] MEDS ORDERED: ALBUTEROL HFA 90 MCG/SPRAY INH SCH (08:30)
[2020-10-27] MEDS ORDERED: KETOROLAC 30 MG/1 ML IM PRN (08:30)
[2020-10-27] MEDS: HEPARIN 5,000 UNITS/ML, 1ML SQ SCH ×2 (08:30→17:01)
[2020-10-27] MEDS ORDERED: HYDROmorphone 2 MG/ML, 1ML IVPush PRN (08:30)
[2020-10-27] MEDS: FLUTICASONE NASAL SPRAY 16GM NAS SCH (09:00)
[2020-10-27] MEDS: AMMONIUM LACTATE 12% TP SCH ×3 (09:00→22:01)
[2020-10-27] MEDS ORDERED: FLUTICASONE/VILANTEROL 200-25MCG/INH INH SCH (09:00)
[2020-10-27] MEDS: POLYETHYLENE GLYCOL 17 GM PACKET PO SCH (09:00)
[2020-10-27] MEDS ORDERED: OXYcodone IR 5MG TABLET ONE ×2 (10:38→21:08)
[2020-10-27] MEDS: PANTOPRAZOLE 40MG TABLET PO SCH (10:51)
[2020-10-27] MEDS: LEVOTHYROXINE 50 MCG TABLET PO SCH (10:51)
[2020-10-27] MEDS: ISOSORBIDE MONONITRATE ER 30 MG TABLET PO SCH (10:51)
[2020-10-27] MEDS: INSULIN LISPRO 100 UNITS/ML, PEN SQ-INSULIN SCH ×4 (11:00→21:59)
[2020-10-27] MEDS: CARVEDILOL 6.25 MG TABLET PO SCH ×2 (11:00→17:01)
[2020-10-27] MEDS ORDERED: ALBUTEROL/IPRATROPIUM 2.5MG/0.5MG, 3 ML NEB SCH (11:00)
[2020-10-27] MEDS: OXYcodone IR 30 MG TABLET PO SCH ×2 (11:01→12:11)
[2020-10-27] MEDS ORDERED: ALBUTEROL/IPRATROPIUM 2.5MG/0.5MG, 3 ML NEB PRN (12:00)
[2020-10-27] MEDS: ACETAMINOPHEN 325 MG TABLET PO SCH ×2 (12:11→17:03)
[2020-10-27 12:20] LABS: BASOPHILS % (AUTO) 0 % (0-1); EOSINOPHILS % (AUTO) 1 % (1-7); LYMPHOCYTES % (AUTO) 3 % (22-44); MEAN CORPUSCULAR HEMOGLOBIN 29.1 pg (27.5-34.5); MEAN CORPUSCULAR HGB CONC 32.4 g/dL (33.2-36.2); MEAN PLATELET VOLUME 7.4 fL (7.4-10.4); MONOCYTES % (AUTO) 4 % (2-9); NEUTROPHILS % (AUTO) 92 % (42-75); PLATELET COUNT 286 x10^3/uL (130-400); RED BLOOD COUNT 2.86 x10^6/uL (4.38-5.82); RED CELL DISTRIBUTION WIDTH 16.2 % (9.4-14.8)
[2020-10-27 12:31] LABS: ANION GAP 3 mmol/L (5-15); CALCIUM 8.5 mg/dL (8.5-10.1); CHLORIDE 109 mmol/L (98-107); CREATININE 3.08 mg/dL (0.7-1.3)
[2020-10-27] MEDS: PIPERACILLIN/TAZO 3.375 GM in DEXTROSE 5% 50 ML IV SCH ×2 (14:10→19:40)
[2020-10-27 14:13] VITALS: BP 152/78
[2020-10-27] MEDS ORDERED: OXYcodone IR 30 MG TABLET PO SCH (16:30)
[2020-10-27 19:10] VITALS: BP 162/67
[2020-10-27] MEDS: ATORVASTATIN 80 MG TABLET PO SCH (21:47)
[2020-10-27] MEDS: SENNOSIDES 8.6 MG TABLET PO SCH (21:47)
[2020-10-27] MEDS: OXYcodone IR 5MG TABLET PO SCH (21:49)
[2020-10-28] MEDS: ACETAMINOPHEN 325 MG TABLET PO SCH ×4 (00:53→18:09)
[2020-10-28] MEDS: HEPARIN 5,000 UNITS/ML, 1ML SQ SCH ×3 (00:53→15:34)
[2020-10-28 01:00] VITALS: BP 144/51
[2020-10-28] MEDS: PIPERACILLIN/TAZO 3.375 GM in DEXTROSE 5% 50 ML IV SCH ×3 (01:47→15:34)
[2020-10-28] MEDS: OXYcodone IR 5MG TABLET PO SCH ×5 (01:48→20:09)
[2020-10-28] MEDS: SODIUM CHLORIDE 0.9% 1,000 ML IV SCH (03:27)
[2020-10-28 04:47] LABS: MEAN CORPUSCULAR HEMOGLOBIN 29.5 pg (27.5-34.5); MEAN CORPUSCULAR HGB CONC 32.3 g/dL (33.2-36.2); MEAN PLATELET VOLUME 7.3 fL (7.4-10.4); PLATELET COUNT 282 x10^3/uL (130-400); RED BLOOD COUNT 2.89 x10^6/uL (4.38-5.82); RED CELL DISTRIBUTION WIDTH 16.4 % (9.4-14.8)
[2020-10-28 04:59] LABS: ANION GAP 6 mmol/L (5-15); CALCIUM 8.6 mg/dL (8.5-10.1); CHLORIDE 109 mmol/L (98-107)
[2020-10-28 05:11] LABS: CREATININE 3.14 mg/dL (0.7-1.3)
[2020-10-28 05:50] LABS: BAND#(MANUAL) 0.45 x10^3/uL; BANDS%(MANUAL) 2 % (0-7); BASOS#(MANUAL) 0.23 x10^3/uL (0-0.1); BASOS% (MANUAL) 1 % (0-1); LYMPH#(MANUAL) 0.68 x10^3/uL (1-3.4); LYMPHS% (MANUAL) 3 % (22-44); SEG#(MANUAL) 21.34 x10^3/uL (1.8-6.8); SEGS% (MANUAL) 94 % (42-75)
[2020-10-28 05:51] LABS: <PLATELET ESTIMATE> ADEQUATE; <PLT MORPHOLOGY> NORMAL PLT MORPH; ANISOCYTOSIS 1+
[2020-10-28] MEDS: ASPIRIN 81 MG TABLET EC PO SCH (06:23)
[2020-10-28 06:29] VITALS: BP 150/68
[2020-10-28] MEDS: CARVEDILOL 6.25 MG TABLET PO SCH (06:31)
[2020-10-28] MEDS: INSULIN LISPRO 100 UNITS/ML, PEN SQ-INSULIN SCH ×4 (07:00→21:00)
[2020-10-28] MEDS: POLYETHYLENE GLYCOL 17 GM PACKET PO SCH (09:00)
[2020-10-28] MEDS: AMMONIUM LACTATE 12% TP SCH ×2 (09:00→18:08)
[2020-10-28] MEDS: FLUTICASONE NASAL SPRAY 16GM NAS SCH (09:00)
[2020-10-28] MEDS ORDERED: GADOTERATE 7.5 MMOL/15ML SYR ONE (09:30)
[2020-10-28] MEDS: LEVOTHYROXINE 50 MCG TABLET PO SCH (10:14)
[2020-10-28] MEDS: PANTOPRAZOLE 40MG TABLET PO SCH (10:15)
[2020-10-28] MEDS: ISOSORBIDE MONONITRATE ER 30 MG TABLET PO SCH (10:15)
[2020-10-28 14:30] VITALS: BP 157/65
[2020-10-28] MEDS ORDERED: VANCOMYCIN 2,100 MG in SODIUM CHLORIDE 0.9% 500 ML IV SCH (16:30)
[2020-10-28] MEDS ORDERED: FUROSEMIDE 40 MG TABLET ONE (17:36)
[2020-10-28] MEDS: CARVEDILOL 12.5 MG TABLET PO SCH (18:08)
[2020-10-28] MEDS: FUROSEMIDE 80 MG TABLET PO SCH (18:08)
[2020-10-28 18:44] VITALS: BP 117/55
[2020-10-28] MEDS: PIPERACILLIN/TAZO 2.25 GM in DEXTROSE 5% 50 ML IVPB SCH (21:02)
[2020-10-28] MEDS: SENNOSIDES 8.6 MG TABLET PO SCH (22:30)
[2020-10-28] MEDS: ATORVASTATIN 80 MG TABLET PO SCH (22:30)
[2020-10-29] MEDS: HEPARIN 5,000 UNITS/ML, 1ML SQ SCH ×3 (00:12→16:44)
[2020-10-29] MEDS: OXYcodone IR 5MG TABLET PO SCH ×6 (00:12→20:16)
[2020-10-29] MEDS: ACETAMINOPHEN 325 MG TABLET PO SCH ×4 (00:12→16:45)
[2020-10-29 01:59] VITALS: BP 137/72
[2020-10-29] MEDS: PIPERACILLIN/TAZO 2.25 GM in DEXTROSE 5% 50 ML IVPB SCH ×4 (04:32→23:15)
[2020-10-29] MEDS: CARVEDILOL 12.5 MG TABLET PO SCH ×2 (06:00→18:26)
[2020-10-29] MEDS: ASPIRIN 81 MG TABLET EC PO SCH (06:00)
[2020-10-29 06:02] LABS: BASOPHILS % (AUTO) 0 % (0-1); EOSINOPHILS % (AUTO) 4 % (1-7); LYMPHOCYTES % (AUTO) 8 % (22-44); MEAN CORPUSCULAR HGB CONC 32.7 g/dL (33.2-36.2); MEAN PLATELET VOLUME 7.3 fL (7.4-10.4); MONOCYTES % (AUTO) 6 % (2-9); NEUTROPHILS % (AUTO) 82 % (42-75); PLATELET COUNT 290 x10^3/uL (130-400); RED BLOOD COUNT 2.49 x10^6/uL (4.38-5.82); RED CELL DISTRIBUTION WIDTH 15.9 % (9.4-14.8)
[2020-10-29 06:10] LABS: % IRON SATURATION 14 % (20-55); ANION GAP 8 mmol/L (5-15); CALCIUM 8.3 mg/dL (8.5-10.1); CHLORIDE 108 mmol/L (98-107); CREATININE 3.65 mg/dL (0.7-1.3); IRON LEVEL 24 mcg/dL (65-175); TOTAL IRON BINDING CAPACITY 168 mcg/dL (250-450)
[2020-10-29] MEDS: INSULIN LISPRO 100 UNITS/ML, PEN SQ-INSULIN SCH ×4 (07:00→20:20)
[2020-10-29 07:10] VITALS: BP 130/62
[2020-10-29] MEDS: BISACODYL 10 MG SUPP PR SCH (09:00)
[2020-10-29] MEDS: AMMONIUM LACTATE 12% TP SCH ×2 (09:00→20:31)
[2020-10-29] MEDS: POLYETHYLENE GLYCOL 17 GM PACKET PO SCH (09:00)
[2020-10-29] MEDS: PANTOPRAZOLE 40MG TABLET PO SCH (09:00)
[2020-10-29] MEDS: LACTOBACILLUS CHEW TABLET PO SCH ×3 (09:01→20:17)
[2020-10-29] MEDS: LEVOTHYROXINE 50 MCG TABLET PO SCH (09:02)
[2020-10-29] MEDS: ISOSORBIDE MONONITRATE ER 30 MG TABLET PO SCH (09:02)
[2020-10-29] MEDS: FUROSEMIDE 80 MG TABLET PO SCH (09:02)
[2020-10-29] MEDS: FLUTICASONE NASAL SPRAY 16GM NAS SCH (10:22)
[2020-10-29] MEDS: FUROSEMIDE 40 MG TABLET PO SCH (16:45)
[2020-10-29] MEDS: DAPTOMYCIN 1,000 MG in SODIUM CHLORIDE 0.9% 100 ML IV SCH (18:26)
[2020-10-29 18:41] VITALS: BP 128/65
[2020-10-29 20:14] VITALS: BP 151/77
[2020-10-29] MEDS: SENNOSIDES 8.6 MG TABLET PO SCH (20:17)
[2020-10-30] MEDS: ACETAMINOPHEN 325 MG TABLET PO SCH ×5 (00:21→17:26)
[2020-10-30] MEDS: HEPARIN 5,000 UNITS/ML, 1ML SQ SCH ×3 (00:22→16:23)
[2020-10-30] MEDS: OXYcodone IR 5MG TABLET PO SCH ×6 (00:22→20:51)
[2020-10-30 00:29] VITALS: BP 147/66
[2020-10-30] MEDS: PIPERACILLIN/TAZO 2.25 GM in DEXTROSE 5% 50 ML IVPB SCH ×4 (04:03→22:48)
[2020-10-30] MEDS: ASPIRIN 81 MG TABLET EC PO SCH (05:43)
[2020-10-30] MEDS: CARVEDILOL 12.5 MG TABLET PO SCH ×2 (05:43→16:24)
[2020-10-30 06:13] LABS: BASOPHILS % (AUTO) 1 % (0-1); EOSINOPHILS % (AUTO) 5 % (1-7); LYMPHOCYTES % (AUTO) 11 % (22-44); MEAN CORPUSCULAR HEMOGLOBIN 29.8 pg (27.5-34.5); MEAN CORPUSCULAR HGB CONC 33.5 g/dL (33.2-36.2); MEAN PLATELET VOLUME 7.4 fL (7.4-10.4); MONOCYTES % (AUTO) 7 % (2-9); NEUTROPHILS % (AUTO) 76 % (42-75); PLATELET COUNT 285 x10^3/uL (130-400); RED BLOOD COUNT 2.49 x10^6/uL (4.38-5.82); RED CELL DISTRIBUTION WIDTH 16.4 % (9.4-14.8)
[2020-10-30 06:21] LABS: CHLORIDE 108 mmol/L (98-107)
[2020-10-30 06:29] LABS: ANION GAP 8 mmol/L (5-15); CALCIUM 8.4 mg/dL (8.5-10.1); CREATININE 3.83 mg/dL (0.7-1.3)
[2020-10-30] MEDS ORDERED: METHYLNALTREXONE 12 MG/0.6 ML SYR SQ ONE (08:00)
[2020-10-30] MEDS: POLYETHYLENE GLYCOL 17 GM PACKET PO SCH (08:04)
[2020-10-30] MEDS: ISOSORBIDE MONONITRATE ER 30 MG TABLET PO SCH (08:05)
[2020-10-30] MEDS: FUROSEMIDE 40 MG TABLET PO SCH ×2 (08:05→16:21)
[2020-10-30] MEDS: INSULIN LISPRO 100 UNITS/ML, PEN SQ-INSULIN SCH ×4 (08:05→22:03)
[2020-10-30] MEDS: LEVOTHYROXINE 50 MCG TABLET PO SCH (08:06)
[2020-10-30] MEDS: LACTOBACILLUS CHEW TABLET PO SCH ×3 (08:06→22:05)
[2020-10-30] MEDS: PANTOPRAZOLE 40MG TABLET PO SCH (08:06)
[2020-10-30] MEDS: BISACODYL 10 MG SUPP PR SCH (08:07)
[2020-10-30 08:31] VITALS: BP 146/68
[2020-10-30] MEDS: AMMONIUM LACTATE 12% TP SCH ×2 (09:00→22:06)
[2020-10-30] MEDS: FLUTICASONE NASAL SPRAY 16GM NAS SCH (10:10)
[2020-10-30 14:25] VITALS: BP 157/62
[2020-10-30 20:50] VITALS: BP 127/65
[2020-10-30] MEDS: SENNOSIDES 8.6 MG TABLET PO SCH (22:04)
[2020-10-31] MEDS: ACETAMINOPHEN 325 MG TABLET PO SCH ×4 (00:18→17:45)
[2020-10-31] MEDS: HEPARIN 5,000 UNITS/ML, 1ML SQ SCH ×3 (00:23→16:26)
[2020-10-31] MEDS: OXYcodone IR 5MG TABLET PO SCH ×6 (00:24→20:40)
[2020-10-31 00:26] VITALS: BP 123/66
[2020-10-31] MEDS: PIPERACILLIN/TAZO 2.25 GM in DEXTROSE 5% 50 ML IVPB SCH ×4 (04:36→22:39)
[2020-10-31 05:47] LABS: ANION GAP 6 mmol/L (5-15); CALCIUM 8.4 mg/dL (8.5-10.1); CHLORIDE 110 mmol/L (98-107); CREATININE 3.64 mg/dL (0.7-1.3)
[2020-10-31 06:22] VITALS: BP 141/60
[2020-10-31] MEDS: ASPIRIN 81 MG TABLET EC PO SCH (06:23)
[2020-10-31] MEDS: CARVEDILOL 12.5 MG TABLET PO SCH ×2 (06:23→16:24)
[2020-10-31] MEDS: INSULIN LISPRO 100 UNITS/ML, PEN SQ-INSULIN SCH ×4 (07:00→20:59)
[2020-10-31] MEDS: PANTOPRAZOLE 40MG TABLET PO SCH (07:46)
[2020-10-31] MEDS: ISOSORBIDE MONONITRATE ER 30 MG TABLET PO SCH (07:46)
[2020-10-31] MEDS: FUROSEMIDE 40 MG TABLET PO SCH ×2 (07:48→16:23)
[2020-10-31] MEDS: FLUTICASONE NASAL SPRAY 16GM NAS SCH (07:48)
[2020-10-31] MEDS: LACTOBACILLUS CHEW TABLET PO SCH ×3 (07:49→20:39)
[2020-10-31] MEDS: LEVOTHYROXINE 50 MCG TABLET PO SCH (07:49)
[2020-10-31] MEDS: POLYETHYLENE GLYCOL 17 GM PACKET PO SCH (07:49)
[2020-10-31] MEDS: AMMONIUM LACTATE 12% TP SCH ×2 (07:50→20:59)
[2020-10-31] MEDS: BISACODYL 10 MG SUPP PR SCH (07:50)
[2020-10-31 09:03] VITALS: BP 125/63
[2020-10-31] MEDS: CALCIUM/VITAMIN D3 250-125 TABLET PO SCH ×2 (10:59→20:38)
[2020-10-31 13:33] VITALS: BP 133/66
[2020-10-31] MEDS: DAPTOMYCIN 1,000 MG in SODIUM CHLORIDE 0.9% 100 ML IV SCH (17:41)
[2020-10-31 18:55] VITALS: BP 170/64
[2020-10-31 20:28] VITALS: BP 137/64
[2020-10-31] MEDS: SENNOSIDES 8.6 MG TABLET PO SCH (20:39)
[2020-11-01] MEDS: ACETAMINOPHEN 325 MG TABLET PO SCH ×4 (00:30→17:56)
[2020-11-01] MEDS: HEPARIN 5,000 UNITS/ML, 1ML SQ SCH ×3 (00:42→17:55)
[2020-11-01] MEDS: OXYcodone IR 5MG TABLET PO SCH ×5 (00:43→22:34)
[2020-11-01 01:24] VITALS: BP 137/66
[2020-11-01] MEDS: PIPERACILLIN/TAZO 2.25 GM in DEXTROSE 5% 50 ML IVPB SCH ×4 (04:50→19:39)
[2020-11-01 05:09] LABS: ANION GAP 4 mmol/L (5-15); CALCIUM 8.6 mg/dL (8.5-10.1); CHLORIDE 110 mmol/L (98-107)
[2020-11-01 05:10] LABS: CREATININE 3.43 mg/dL (0.7-1.3)
[2020-11-01 05:34] VITALS: BP 154/68
[2020-11-01] MEDS: CARVEDILOL 12.5 MG TABLET PO SCH ×2 (05:35→17:55)
[2020-11-01] MEDS: ASPIRIN 81 MG TABLET EC PO SCH (05:35)
[2020-11-01 06:50] VITALS: BP 150/69
[2020-11-01] MEDS: INSULIN LISPRO 100 UNITS/ML, PEN SQ-INSULIN SCH ×4 (07:00→20:00)
[2020-11-01] MEDS: AMMONIUM LACTATE 12% TP SCH ×2 (09:00→21:00)
[2020-11-01] MEDS: POLYETHYLENE GLYCOL 17 GM PACKET PO SCH (09:00)
[2020-11-01] MEDS: CALCIUM/VITAMIN D3 250-125 TABLET PO SCH ×2 (09:00→21:00)
[2020-11-01] MEDS: FLUTICASONE NASAL SPRAY 16GM NAS SCH (09:00)
[2020-11-01] MEDS: BISACODYL 10 MG SUPP PR SCH (09:00)
[2020-11-01] MEDS: LACTOBACILLUS CHEW TABLET PO SCH ×3 (09:00→21:10)
[2020-11-01] MEDS: FUROSEMIDE 40 MG TABLET PO SCH ×2 (10:21→17:55)
[2020-11-01] MEDS: ISOSORBIDE MONONITRATE ER 30 MG TABLET PO SCH (10:22)
[2020-11-01] MEDS: LEVOTHYROXINE 50 MCG TABLET PO SCH (10:23)
[2020-11-01] MEDS: PANTOPRAZOLE 40MG TABLET PO SCH (10:24)
[2020-11-01 15:02] VITALS: BP 127/62
[2020-11-01 16:49] VITALS: BP 168/67
[2020-11-01 20:57] VITALS: BP 157/69
[2020-11-01] MEDS: SENNOSIDES 8.6 MG TABLET PO SCH ×2 (21:00→21:10)
[2020-11-01 23:01] LABS: OCCULT BLOOD NEGATIVE (NEGATIVE)
[2020-11-02] MEDS: ACETAMINOPHEN 325 MG TABLET PO SCH ×3 (00:29→12:14)
[2020-11-02] MEDS: PIPERACILLIN/TAZO 2.25 GM in DEXTROSE 5% 50 ML IVPB SCH ×3 (01:05→12:11)
[2020-11-02] MEDS: HEPARIN 5,000 UNITS/ML, 1ML SQ SCH ×3 (01:05→16:40)
[2020-11-02 01:19] VITALS: BP 130/70
[2020-11-02] MEDS: OXYcodone IR 5MG TABLET PO SCH ×4 (02:53→16:34)
[2020-11-02] MEDS: INSULIN LISPRO 100 UNITS/ML, PEN SQ-INSULIN SCH ×3 (05:44→16:00)
[2020-11-02 05:54] LABS: HCT (SEDRATE) 23.6 % (39.2-51.8)
[2020-11-02 05:55] VITALS: BP 148/68
[2020-11-02] MEDS: CARVEDILOL 12.5 MG TABLET PO SCH ×2 (05:59→16:34)
[2020-11-02] MEDS: ASPIRIN 81 MG TABLET EC PO SCH (05:59)
[2020-11-02 06:02] LABS: BASOPHILS % (AUTO) 1 % (0-1); EOSINOPHILS % (AUTO) 6 % (1-7); LYMPHOCYTES % (AUTO) 22 % (22-44); MEAN CORPUSCULAR HEMOGLOBIN 29.2 pg (27.5-34.5); MEAN CORPUSCULAR HGB CONC 33.1 g/dL (33.2-36.2); MEAN PLATELET VOLUME 6.9 fL (7.4-10.4); MONOCYTES % (AUTO) 9 % (2-9); NEUTROPHILS % (AUTO) 62 % (42-75); PLATELET COUNT 311 x10^3/uL (130-400); RED BLOOD COUNT 2.65 x10^6/uL (4.38-5.82); RED CELL DISTRIBUTION WIDTH 16.2 % (9.4-14.8)
[2020-11-02 06:15] LABS: ALBUMIN 1.8 g/dL (3.4-5.0); ANION GAP 3 mmol/L (5-15); CALCIUM 8.5 mg/dL (8.5-10.1); CHLORIDE 111 mmol/L (98-107)
[2020-11-02 06:23] LABS: ALANINE AMINOTRANSFERASE 22 U/L (12-78); ALKALINE PHOSPHATASE 59 U/L (45-117); BILIRUBIN,TOTAL 0.2 mg/dL (0.2-1.0); CREATINE KINASE, TOTAL 30 U/L (39-308); CREATININE 3.24 mg/dL (0.7-1.3); TOTAL PROTEIN 7.5 g/dL (6.4-8.2)
[2020-11-02 06:38] LABS: SEDIMENTATION RATE > 120 mm/hr (0-10)
[2020-11-02 07:01] VITALS: BP 162/72
[2020-11-02] MEDS: LACTOBACILLUS CHEW TABLET PO SCH ×2 (07:54→16:34)
[2020-11-02] MEDS: FUROSEMIDE 40 MG TABLET PO SCH ×2 (07:55→16:33)
[2020-11-02] MEDS: PANTOPRAZOLE 40MG TABLET PO SCH (07:56)
[2020-11-02] MEDS: ISOSORBIDE MONONITRATE ER 30 MG TABLET PO SCH (07:56)
[2020-11-02] MEDS: LEVOTHYROXINE 50 MCG TABLET PO SCH (07:57)
[2020-11-02] MEDS: POLYETHYLENE GLYCOL 17 GM PACKET PO SCH (07:57)
[2020-11-02] MEDS: CALCIUM/VITAMIN D3 250-125 TABLET PO SCH (07:58)
[2020-11-02] MEDS: BISACODYL 10 MG SUPP PR SCH (07:58)
[2020-11-02] MEDS: AMMONIUM LACTATE 12% TP SCH (07:59)
[2020-11-02] MEDS: FLUTICASONE NASAL SPRAY 16GM NAS SCH ×2 (09:00→13:14)
[2020-11-02] MEDS ORDERED: CARV12.52 PO (11:48)
[2020-11-02] MEDS ORDERED: SENN-99 PO (11:48)
[2020-11-02] MEDS ORDERED: HYDR-3343 PO (11:48)
[2020-11-02] MEDS ORDERED: CALC1TAB68 PO (11:48)
[2020-11-02] MEDS ORDERED: ACID1TAB7 PO (11:48)
[2020-11-02 12:46] VITALS: BP 149/66
[2020-11-02] MEDS: DAPTOMYCIN 1,000 MG in SODIUM CHLORIDE 0.9% 100 ML IV SCH (16:33)
== END 2020-11-02 17:40 | DRG 637 ==
LOC: ED 22:00 → EDIP 10-27 02:08 → 4NW 10-27 02:41 → 3N 10-28 20:42
PROVIDERS: ADMIT Internal Medicine; ATTEND Internal Medicine
DX: E11.69 Type 2 diabetes mellitus with other specified complication (principal); E43 Unspecified severe protein-calorie malnutrition; M86.171 Other acute osteomyelitis, right ankle and foot; Z68.42 Body mass index [BMI] 45.0-49.9, adult; L97.419 Non-pressure chronic ulcer of right heel and midfoot with unspecified severity; N18.4 Chronic kidney disease, stage 4 (severe); E66.01 Morbid (severe) obesity due to excess calories; I12.9 Hypertensive chronic kidney disease with stage 1 through stage 4 chronic kidney disease, or unspecified chronic kidney disease; E11.621 Type 2 diabetes mellitus with foot ulcer; N17.9 Acute kidney failure, unspecified
CPT/HCPCS: 36415; 80048; 80053; 82040; 82272; 82330; 82550; 82962; 83036; 83540; 83550; 83605; 84145; 85025; 85651; 86140; 87040; 87635; 96374; G0378; J0696; J0878; J1170; J1644; J2543; J3370; A9575; J1815; J7030; J7040